=== PATIENT | male | born 1940 | race Caucasian/White ===

== ENCOUNTER 2018-07-17 16:53 | Inpatient (IN) | payer MEDICARE, OTHER ==
[~2018-07-17] VITALS: Ht 177.8 cm; Wt 100.9 kg
[~2018-07-17 16:53] MED LIST: ADULT LOW DOSE81 MG; ASPIRIN325 PO; COLACE100 MG PO; COLCHICINE0.6 MG PO; ELIQUIS2.5 MG PO; FLOMAX0.4 MG PO; GLUCOSAMINE &1 EACH; IRON; KLOR-CON 1010 MEQ PO; NORCO 5-325 TA1 EACH PO; OMEPRAZOLE40 MG PO; ONDANSETRON HCL4 M3 PO; OXYCODONE HCL 55 MG PO; PRILOSEC40 MG; PROSCAR 5MG TABL5 MG PO; SINGULAIR 10 MG10 M1 PO; TRAMADOL 50 MG50 MG PO; UNICOMPLEX M TA1 TA1 PO; VITAMIN D1000 UNI1; VITAMIN D2000 UNIT PO; VITAMIN E400 UNIT; VITAMINC500 PO; XARELTO10 MG PO; ZANTAC 150MG T150 MG PO; ZYRTEC10 M5 PO
[2018-07-17 16:55] VITALS: BP 124/59
[2018-07-17 17:19] LABS: ABSOLUTE BASOPHILS 0.1 thou/uL (0.0-0.2); ABSOLUTE EOSINOPHILS 0.2 thou/uL (0.0-0.7); ABSOLUTE LYMPHOCYTES 1.3 thou/uL (0.8-5.3); ABSOLUTE MONOCYTES 0.6 thou/uL (0.0-1.2); ABSOLUTE NEUTROPHILS 5.8 thou/uL (1.6-8.1); BASOPHILS 0.7 %; EOSINOPHILS 2.4 %; HEMATOCRIT 37.3 % (42.0-52.0); HEMOGLOBIN 12.4 gm/dL (14.0-18.0); LYMPHOCYTES 16.1 %; MCH 27.4 pg (26.0-34.0); MCHC 33.3 g/dL (28.0-37.0); MCV 82.3 fL (80.0-100.0); MONOCYTES 7.2 %; MPV 7.9 fl. (7.2-11.1); NUCLEATED RBCS 0 /100WBC; PLATELET COUNT* 229 thou/uL (150-400); POLYS 73.6 %; RBC 4.54 mil/uL (4.50-6.00); RDW-CV 14.4 % (10.5-14.5); WBC 7.9 thou/uL (4.0-11.0)
[2018-07-17 17:26] LABS: ANION GAP 8 mmol/L (7-16); BUN 49 mg/dL (7-18); CALCIUM 8.7 mg/dL (8.5-10.1); CHLORIDE 100 mmol/L (98-107); CO2 25 mmol/L (21-32); CREATININE 2.7 mg/dL (0.6-1.3); GLUCOSE 127 mg/dL (70-99); POTASSIUM 3.9 mmol/L (3.5-5.1); SODIUM 133 mmol/L (136-145)
[2018-07-17 17:31] LABS: ALBUMIN 2.9 g/dL (3.4-5.0); ALKALINE PHOSPHATASE 125 U/L (46-116); LIPASE 226 U/L (73-393); MAGNESIUM 1.9 mg/dL (1.8-2.4); NT-PRO BRAIN NAT PEPTIDE 966 pg/mL (<300); SGOT 31 U/L (15-37); SGPT 32 U/L (30-65); TOTAL BILIRUBIN 1.2 mg/dL (<0.1-1.0); TOTAL PROTEIN 7.1 g/dL (6.4-8.2); TROPONIN-I LEVEL <0.06 ng/mL (<0.06)
--- NOTE | 2018-07-17 17:33 | NUR ---
PT REPORTS THAT HE IS HAVING A "TWINGE" OF CHEST PAIN WHEN HE BREATHES IN DEEPLY. OTHERWISE, HIS CHIEF COMPLAINT AT THIS TIME IS SHORTNESS OF AIR.
[2018-07-17 17:49] LABS: INFLUENZA A ANTIGEN None Detected (None Detect); INFLUENZA B ANTIGEN None Detected (None Detect)
[2018-07-17 19:43] VITALS: BP 99/53
--- NOTE | 2018-07-17 19:44 | NUR ---
REPORT RECEIVED FROM LANA, WAITING FOR PATIENT'S ARRIVAL.
[2018-07-17 20:00] VITALS: BP 111/57
[2018-07-18] VITALS (7 sets, daily range): BP systolic 103–133; BP diastolic 55–76
[2018-07-18 00:58] LABS: HEMOGLOBIN 11.3 gm/dL (14.0-18.0); MCH 27.4 pg (26.0-34.0); MCHC 33.1 g/dL (28.0-37.0); MCV 82.6 fL (80.0-100.0); MPV 7.7 fl. (7.2-11.1); RBC 4.12 mil/uL (4.50-6.00); RDW-CV 13.9 % (10.5-14.5); WBC 6.2 thou/uL (4.0-11.0)
[2018-07-18 01:33] LABS: ALBUMIN 2.3 g/dL (3.4-5.0); CALCIUM 7.7 mg/dL (8.5-10.1); CREATININE 2.5 mg/dL (0.6-1.3); MAGNESIUM 1.7 mg/dL (1.8-2.4); POTASSIUM 4.1 mmol/L (3.5-5.1); TOTAL BILIRUBIN 1.5 mg/dL (<0.1-1.0)
[2018-07-18 03:49] LABS: URINE BILIRUBIN NEGATIVE (Negative); URINE BLOOD 2+ (Negative); URINE CLARITY CLEAR; URINE COLOR ORANGE; URINE GLUCOSE-RANDOM NEGATIVE (Negative); URINE KETONES TRACE (Negative); URINE LEUKOCYTES-REFLEX NEGATIVE (Negative); URINE NITRITE-REFLEX NEGATIVE (Negative); URINE PROTEIN NEGATIVE (Negative); URINE SPECIFIC GRAVITY 1.025 (1.005-1.030); URINE UROBILINOGEN 0.2 E.U./dl (0.2-1.0)
[2018-07-18 04:04] LABS: HYALINE CASTS 4-10 Moderate /LPF (None Seen); MUCUS 4-6 Moderate strn/LPF (None Seen); SQUAMOUS 4-10 Moderate /LPF (0-3)
[2018-07-18 04:05] LABS: BACTERIA-REFLEX 1-9 Few /HPF (None Seen); CRYSTALS None Seen /LPF (None Seen); URINE RBC 3-10 Few /HPF (0-2); URINE WBC-REFLEX 6-15 Few /HPF (0-5)
--- NOTE | 2018-07-18 05:48 | NUR ---
PATIENT RESTED IN BED, NO ACUTE CHANGES. PATIENT DID NOT SHOW SIGNS OF DISTRESS. PATIENT DID NOT COMPLAIN OF PAIN OR SOA. FALL PRECAUTIONS IN PLACE, CALL LIGHT WITH IN REACH, HOURLY ROUNDING OBSERVED, BED ALARM ON.
--- NOTE | 2018-07-18 08:00 | NUR ---
PT RESTING IN BED, SLEEP INTERUPTED, APPEARS O X 4, DENIES CHEST PAIN,.SOB, PAIN OR DISCOMFORT, WEARS CPAP AT HS , NPO FOR ABDOMINAL US
--- NOTE | 2018-07-18 12:00 | EKG ---
[place] [address] ELECTROCARDIOGRAM REPORT Name: KAYLEIGH ZAMBRANO Room: [address] ADM IN M.R.#: [id number] Admission: 07/17/18 Attend Phys: Jesus Frank, Discharge: Date of : 44 Report #: [id number] THIS REPORT FOR: //name// [facility] ED Test Date: 2018-07-17 Test Time: 17:01:15 Pat Name: KAYLEIGH ZAMBRANO Department: Room: [address] Gender: M Electronics Tester: JONAS : 1940 Requested By: Vargas aVughan Order Number: [id number] Reading MD: Speedy Kuo Measurements Intervals [place] Rate: 53 P: 56 [place]: 151 QRS: 71 QRSD: 105 T: 32 QT: 355 QTc: 334 Interpretive Statements Sinus rhythm Atrial premature complexes Minimal ST depression ST elevation, consider inferior injury Short QT interval Baseline wander in lead(s) V1 Compared to ECG 08/06/2017 09:08:36 Atrial premature complex(es) now present ST (T wave) deviation now present Myocardial infarct finding now present Short QT interval now present Electronically Signed On 07-18-2018 11:59:56 CDT by Speedy Kuo [email or web address] <ELECTRONICALLY SIGNED> By: Speedy Kuo MD, FACC 07/18/18 1159 00 170 Speedy Kuo MD, FACC /EPI
--- NOTE | 2018-07-18 12:00 | EKG ---
[place] [address] ELECTROCARDIOGRAM REPORT Name: KAYLEIGH ZAMBRANO Room: [address] ADM IN M.R.#: [id number] Admission: 07/17/18 Attend Phys: Jesus Frank, Discharge: Date of : 44 Report #: [id number] THIS REPORT FOR: //name// [facility] ED Test Date: 2018-07-17 Test Time: 17:53:52 Pat Name: KAYLEIGH ZAMBRANO Department: Room: [facility] Gender: M Him Tech: JONAS : 1940 Requested By: Vargas Vaughan Order Number: [id number] MD: Speedy Kuo Measurements Intervals [place] Rate: 53 P: 40 [place]: 169 QRS: 62 QRSD: 106 T: 30 QT: 372 QTc: 350 Interpretive Statements Sinus rhythm Atrial premature complexes in couplets Low voltage, precordial leads Minimal ST depression ST elevation, consider inferior injury Compared to ECG 08/06/2017 09:08:36 Atrial premature complex(es) now present Low QRS voltage now present ST (T wave) deviation now present Myocardial infarct finding now present Electronically Signed On 07-18-2018 11:59:58 CDT by Speedy Kuo [email or web address] <ELECTRONICALLY SIGNED> By: Speedy Kuo MD, FACC 07/18/18 1159 175 175 Speedy Kuo MD, FACC /EPI
--- NOTE | 2018-07-18 12:00 | EKG ---
[place] [address] ELECTROCARDIOGRAM REPORT Name: KAYLEIGH ZAMBRANO Room: [address] ADM IN M.R.#: [id number] Admission: 07/17/18 Attend Phys: Jesus Frank, Discharge: Date of : 44 Report #: [id number] THIS REPORT FOR: //name// [facility] ED Test Date: 2018-07-17 Test Time: 16:57:34 Pat Name: KAYLEIGH ZAMBRANO Department: Room: [facility] Gender: M Resolution Specialist: JONAS : 1940 Requested By: Vargas Vaughan Order Number: [id number] MD: Speedy Kuo Measurements Intervals [place] Rate: 93 P: 45 [place]: 169 QRS: 70 QRSD: 105 T: 38 QT: 345 QTc: 430 Interpretive Statements Sinus rhythm Atrial premature complexes Probable left atrial enlargement Inferior infarct, acute (LCx) Lateral leads are also involved Compared to ECG 08/06/2017 09:08:36 Atrial premature complex(es) now present Myocardial infarct finding now present Electronically Signed On 07-18-2018 11:59:52 CDT by Speedy Kuo [email or web address] <ELECTRONICALLY SIGNED> By: Speedy Kuo MD, FACC 07/18/18 1159 1657 1657 Speedy Kuo MD, FACC /EPI
--- NOTE | 2018-07-18 12:02 | EKG ---
[place] [address] ELECTROCARDIOGRAM REPORT Name: KAYLEIGH ZAMBRANO Room: [address] ADM IN M.R.#: [id number] Admission: 07/17/18 Attend Phys: Jesus Frank, Discharge: Date of : 44 Report #: [id number] THIS REPORT FOR: //name// [facility] Test Date: 2018-07-18 Test Time: 10:15:30 Pat Name: KAYLEIGH ZAMBRANO Department: Room: [address] Gender: M Orthopedic Technician: : 1940 Requested By: Speedy Kuo Order Number: [id number] Reading MD: Speedy Kuo Measurements Intervals [place] Rate: 73 P: [place]: QRS: 58 QRSD: 105 T: 5 QT: 357 QTc: 394 Interpretive Statements AFIB Low voltage, precordial leads Minimal ST depression Compared to ECG 08/06/2017 09:08:36 Low QRS voltage now present ST (T wave) deviation now present Sinus rhythm no longer present Electronically Signed On 07-18-2018 12:02:19 CDT by Speedy Kuo [email or web address] <ELECTRONICALLY SIGNED> By: Speedy Kuo MD, FACC 07/18/18 1202 1015 1015 Speedy Kuo MD, FAC /EPI
--- NOTE | 2018-07-18 18:39 | NUR ---
pt resting in bed, denies chest pain, denies SOB at rest. appears dyspneic with minimal activity, was in a0fin earlier in day, now in NSR , plan on JAKE in am, npo at midnight
--- NOTE | 2018-07-18 18:48 | NUR ---
pt voided, unmeasured amt this am. states maybe 300-400 ml , unsure, has not voided since aprx 1000 this am, bladder scanned, shows 170 ml, pt states not feel urge to void. states straights vaths at home often, because can not always empty bladder completly, but states can feel urge
[2018-07-19 04:19] VITALS: BP 140/74
[2018-07-19 04:49] LABS: ABSOLUTE EOSINOPHILS 0.3 thou/uL (0.0-0.7); ABSOLUTE LYMPHOCYTES 1.3 thou/uL (0.8-5.3); ABSOLUTE MONOCYTES 0.7 thou/uL (0.0-1.2); ABSOLUTE NEUTROPHILS 3.7 thou/uL (1.6-8.1); BASOPHILS 0.8 %; EOSINOPHILS 4.8 %; HEMATOCRIT 33.1 % (42.0-52.0); HEMOGLOBIN 10.9 gm/dL (14.0-18.0); LYMPHOCYTES 21.3 %; MCH 27.6 pg (26.0-34.0); MCHC 33.1 g/dL (28.0-37.0); MCV 83.5 fL (80.0-100.0); MONOCYTES 11.8 %; MPV 8.4 fl. (7.2-11.1); NUCLEATED RBCS 0 /100WBC; PLATELET COUNT* 191 thou/uL (150-400); POLYS 61.3 %; RBC 3.96 mil/uL (4.50-6.00); RDW-CV 13.7 % (10.5-14.5)
--- NOTE | 2018-07-19 05:00 | NUR ---
PATIENT RESTED IN BED, NO ACUTE CHANGES. PATIENT DID NOT SHOW SIGNS OF DISTRESS. PATIENT IS NPO. FALL PRECAUTIONS IN PLACE, CALL LIGHT WITH IN REACH, HOURLY ROUNDING OBSERVED, BED ALARM ON.
[2018-07-19 05:04] LABS: CALCIUM 8.4 mg/dL (8.5-10.1); CREATININE 2.2 mg/dL (0.6-1.3); POTASSIUM 4.4 mmol/L (3.5-5.1)
--- NOTE | 2018-07-19 07:20 | NUR ---
CHANGE OF SHIFT, BEDSIDE REPORT GIVEN PATIENT SEEN AT BEDSIDE, IN BED ASLEEP ASSUMED APTIENT CARE
[2018-07-19 08:00] VITALS: BP 146/68
--- NOTE | 2018-07-19 09:11 | CON ---
[address] [address] CONSULTATION Name: KAYLEIGH ZAMBRANO Room: [address] IN M.R.#: [id number] Admission: 07/17/18 Attend Phys: Jesus Frank, Discharge: Date of : 44 Report #: [id number] THIS REPORT FOR: //name// CC: Jesus Phillip Shadiarmando DATE OF SERVICE: 07/18/2018 REASON FOR CONSULTATION: Chest pain, pericardial effusion. HISTORY OF PRESENT ILLNESS: The patient is a 77-year-old man who was admitted on 07/13/2018 for observation while visiting [place]. He had a sudden onset of a centrally located nonradiating chest pain. It was not associated with palpitations, heart racing or skipping. It was associated with dyspnea with exertion. He went to the emergency room there and apparently from there a nuclear stress test which was performed at that institution, which was a pharmacologic stress test indicated he had normal perfusion and he did not get to see a thermostatic controls supervisor as the stress test was normal. However, a CTA of the chest was also performed, I reviewed these records myself. It was negative for PE or dissection, but it was noted he had a small at least moderate pericardial effusion measuring approximately 1.4 cm circumferential. There was no significant pleural involvement. Since, he was discharged there, he did not feel well, so he just drove home with his where he lives here in [place]. He presented to the Emergency Department with similar symptoms. He is without fevers or chills. His ECG demonstrated atrial fibrillation and he was noted to be in sinus rhythm on the stress test report, but he did say that the ER doctor told him he had an irregular heartbeat. Again, the physician records are not available. We did get a copy of his test results, though. PAST MEDICAL HISTORY: He has no history of immunosuppression illnesses. He has no history of heart disease. He is not a diabetic and does not have kidney failure. He has no history of peripheral vascular disease. SOCIAL HISTORY: He is a nonsmoker. He is , rarely drinks. PAST SURGICAL HISTORY: No recent surgeries. FAMILY HISTORY: Strong for heart disease. Father at age 59 of a heart attack. Brother has a pacemaker. Sister has stents. ALLERGIES: HE HAS ALLERGIES TO PENICILLIN. REVIEW OF SYSTEMS: CENTRAL NERVOUS SYSTEM: No headache, blurry [place] [address] CONSULTATION Name: KAYLEIGH ZAMBRANO AMRIT Room: [address]#: [id number] Admission: 07/17/18 Attend Phys: Jesus Frank, Discharge: Date of : 44 Report #: [id number] GENERAL: No weight loss. Positive ED. RESPIRATORY: Positive cough, but no sputum production. CARDIOVASCULAR: Positive palpitations, positive dyspnea with exertion, chest pain has subsided. NEUROLOGIC: Denies headaches or blurry vision. GASTROINTESTINAL: No nausea, vomiting, hematemesis or melena. GENITOURINARY: No dysuria or hematuria. HEMATOLOGIC: No anemia or bleeding disorders. RENAL: No history of kidney failure. PSYCHIATRIC: No depression or anxiety. SKIN: No rash. MUSCULOSKELETAL: Positive arthritis. He takes no medicines chronically. PHYSICAL EXAMINATION: VITAL SIGNS: Blood pressure is 129/58, pulse is 88 in atrial fibrillation on telemetry, temperature 36.6, respiratory rate 18. GENERAL: A pleasant adult male who is alert, oriented, no apparent distress. NECK: Supple. No jugular venous distention. CARDIOVASCULAR: Regular. I cannot hear a murmur. LUNGS: Clear to auscultation. ABDOMEN: Soft, nontender. EXTREMITIES: No peripheral edema. SKIN: Warm and dry. NEUROLOGIC: There are no focal deficits. Chest x-ray shows no acute cardiopulmonary abnormality. Renal ultrasound demonstrated negative study for kidney stones. LABORATORY DATA: Sodium was 139, potassium is 4.1, chloride is 106, CO2 is 24, BUN is 53, creatinine is 2.5. GFR is 25, AST is 25, ALT is 27. Troponin I is 0.06. BNP was 966. EKG demonstrates atrial fibrillation today. There is a Q-wave in lead 3 only. There are no other ST segment abnormalities. He has somewhat poor R-wave progression. There is no ST elevation or NH depression. IMPRESSION: 1. Chest pain. He had a pharmacologic stress test, which was negative for ischemia. I suspect he has some form of a myocarditis. He does have a known pericardial effusion, which was noted on CT imaging. I would treat him with anti-inflammatories for this. 2. Pericardial effusion. We will reassess his effusion to make sure it is not elevated, with an echocardiogram tomorrow at the time of his transesophageal echo for cardioversion. 3. Atrial fibrillation. This is new onset. Apparently, he was in sinus rhythm based on the stress test result I reviewed; however, the ER doctor told him he [address] [address] CONSULTATION Name: KAYLEIGH ZAMBRANO Room: [address] IN .R.#: [id number] Admission: 07/17/18 Attend Phys: Jesus BrianSue Zac, Discharge: Date of : 44 Report #: [id number] was having an irregular rhythm. I am not sure if it was missed in [place] or not. However, based on the patient's age and symptomatology, I think he would feel better in a sinus rhythm, so we will plan for a JAKE-guided cardioversion. I will place him on Lovenox. I did not place him on novel agent just yet because if his pericardial effusion is larger and needs a tap, we will need to be able to hold his anticoagulation. 4. Renal failure. We will continue with IV fluids. <ELECTRONICALLY SIGNED> By: Ariel Beavers MD, FACC 07/19/18 0911 1040 [id number] Kuo MD, FACC /nt
--- NOTE | 2018-07-19 11:04 | NUR ---
Pt is A&O. Resides at home with his . Normally active and independent, just returned back from a trip to [place]. No DME. No hx of HH or SNF. Strong support sx. Cardiology and Renal following.
[2018-07-19 12:00] VITALS: BP 132/68
--- NOTE | 2018-07-19 15:11 | 2DMMODE ---
[place] [address] 2 D/M-MODE ECHOCARDIOGRAM Name: KAYLEIGH ZAMBRANO AMRIT Room: [address] IN [facility]#: [id number] Admission: 07/17/18 Attend Phys: Jesus Partida Discharge: Date of : 44 Date of Service: 07/19/18 1511 Report #: [id number] THIS REPORT FOR: //name// APPROVED REPORT Study performed: 07/19/2018 11:44:31 EXAM: Comprehensive 2D, Doppler, and color-flow Echocardiogram Patient Location: In-Patient Room #: 208 Status: routine BSA: 2.17 HR: 80 bpm BP: 146/68 mmHg Rhythm: NSR Other Information Study Quality: Good Indications Atrial Fibrillation Dyspnea Chest Pain 2D Dimensions IVSd: 8.96 (7-11mm) LVOT Diam: 19.42 (18-24mm) LVDd: 44.92 mm PWd: 10.37 (7-11mm) Ascending Ao: 31.72 (22-36mm) LVDs: 26.78 (25-40mm) Aortic Root: 34.71 mm Volumes Left Atrial Volume (Systole) LA ESV Index: 26.90 mL/m2 Aortic Valve AoV Peak Telly.: 1.27 m/s AO Peak Gr.: 6.46 mmHg LVOT Max P.52 mmHg AO Mean Gr.: 4.03 mmHg LVOT Mean P.59 mmHg LVOT Max V: 0.94 m/s AO V2 VTI: 27.55 cm LVOT Mean V: 0.57 m/s FAUSTINO (VTI): 2.41 cm2 LVOT V1 VTI: 22.38 cm Mitral Valve E/A Ratio: 2.09 [place] [address] 2 D/M-MODE ECHOCARDIOGRAM Name: KAYLEIGH ZAMBRANO Room: [address] IN M.R.#: [id number] Admission: 07/17/18 Attend Phys: Jesus Partida Discharge: Date of : 44 Date of Service: 07/19/18 1511 Report #: [id number] MV Decel. Time: 180.26 ms MV E Max Telly.: 1.18 m/s MV PHT: 52.28 ms MVA (PHT): 4.21 cm2 TDI E/Lateral E': 14.75 E/Medial E': 10.73 Medial E' Telly.: 0.11 m/s Lateral E' Telly.: 0.08 m/s Pulmonary Valve PV Peak Telly.: 0.97 m/s PV Peak Gr.: 3.76 mmHg Tricuspid Valve RAP Estimate: 5.00 mmHg TR Peak Gr.: 37.95 mmHg RVSP: 43.00 mmHg PA Pressure: 43.00 mmHg Left Ventricle The left ventricle is normal size. There is normal LV segmental wall motion. There is normal left ventricular wall thickness. Left ventricular systolic function is normal. The left ventricular ejection fraction is within the normal range. LVEF is 60%. The left ventricular diastolic function is normal. Right Ventricle The right ventricle is normal size. The right ventricular systolic function is normal. Atria The left atrium size is normal. The right atrium size is normal. Aortic Valve The aortic valve is normal in structure. No aortic regurgitation is present. There is no aortic valvular stenosis. Mitral Valve Mitral valve leaflets are mildly thickened. Mild mitral regurgitation. No evidence of mitral valve stenosis. Tricuspid Valve The tricuspid valve is normal in structure. Mild tricuspid regurgitation. Mild pulmonary hypertension[place] [address] 2 D/M-MODE ECHOCARDIOGRAM Name: KAYLEIGH ZAMBRANO Room: [address] IN [facility]#: [id number] Admission: 07/17/18 Attend Phys: Jesus Partida Discharge: Date of : 44 Date of Service: 07/19/18 1511 Report #: [id number] The pulmonary valve is normal in structure. Mild pulmonic regurgitation. Great Vessels The aortic root is normal in size. IVC is normal in size and collapses >50% with inspiration. Pericardium Mild circumferential pericardial effusion. <Conclusion> The left ventricle is normal size. There is normal left ventricular wall thickness. Left ventricular systolic function is normal. The left ventricular ejection fraction is within the normal range. LVEF is 60%. The left ventricular diastolic function is normal. The right ventricle is normal size. The left atrium size is normal. The aortic valve is normal in structure. Mitral valve leaflets are mildly thickened. Mild mitral regurgitation. No evidence of mitral valve stenosis. The tricuspid valve is normal in structure. Mild tricuspid regurgitation. Mild pulmonary hypertension. IVC is normal in size and collapses >50% with inspiration. Mild circumferential pericardial effusion. There is normal LV segmental wall motion. <ELECTRONICALLY SIGNED> By: Felipe Garsia MD, FACC 07/19/181510 10 10 Felipe Garsia MD, FACC /INF
[2018-07-19 16:00] VITALS: BP 131/78
--- NOTE | 2018-07-19 17:54 | EKG ---
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: : 1940 Requested By: Debbie Yanez Order Number: [id number] Reading MD: Ariel Beavers Measurements Intervals [place] Rate: 64 P: 34 [place]: 174 QRS: 76 QRSD: 107 T: 21 QT: 400 QTc: 413 Interpretive Statements Sinus rhythm Low voltage, precordial leads Compared to ECG 07/18/2018 10:15:30 Atrial fibrillation no longer present ST (T wave) deviation no longer present Electronically Signed On 07-19-2018 17:54:10 CDT by Ariel Beavers [email or web address] <ELECTRONICALLY SIGNED> By: Ariel Beavers MD, FACC 07/19/18 1754 1106 1106 Ariel Beavers MD, FACC /EPI
--- NOTE | 2018-07-19 17:55 | EKG ---
[place] [address] ELECTROCARDIOGRAM REPORT Name: KAYLEIGH ZAMBRANO Room: [address] ADM IN M.R.#: [id number] Admission: 07/17/18 Attend Phys: Jesus Frank, Discharge: Date of : 44 Report #: [id number] THIS REPORT FOR: //name// [facility] Test Date: 2018-07-19 Test Time: 14:13:10 Pat Name: KAYLEIGH ZAMBRANO Department: Room: 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: [facility] : 1940 Requested By: Ariel Beavers Order Number: [id number] Reading MD: Ariel Beavers Measurements Intervals [place] Rate: 82 P: [place]: QRS: 76 QRSD: 111 T: 0 QT: 375 QTc: 438 Interpretive Statements Atrial fibrillation Low voltage, precordial leads Borderline repolarization abnormality Compared to ECG 07/18/2018 10:15:30 ST (T wave) deviation no longer present Electronically Signed On 07-19-2018 17:55:38 CDT by Ariel Beavers [email or web address] <ELECTRONICALLY SIGNED> By: Ariel Beavers MD, FACC 07/19/18 1755 1413 1413 Ariel Beavers MD, [facility] /EPI
[2018-07-19 20:00] VITALS: BP 149/85
[2018-07-20] VITALS: BP 147/79
--- NOTE | 2018-07-20 03:28 | NUR ---
PATIENT RESTED IN BED, NO ACUTE CHANGES. PATIENT DID NOT SHOW SIGNS OF DISTRESS. FALL PRECAUTIONS IN PLACE, CALL LIGHT WITH IN REACH, HOURLY ROUNDING OBSERVED, BED ALARM ON.
[2018-07-20 03:54] LABS: HEMATOCRIT 33.9 % (42.0-52.0); HEMOGLOBIN 11.2 gm/dL (14.0-18.0); MCH 27.4 pg (26.0-34.0); MCHC 33.1 g/dL (28.0-37.0); MCV 82.9 fL (80.0-100.0); MPV 7.5 fl. (7.2-11.1); RBC 4.09 mil/uL (4.50-6.00); RDW-CV 14.2 % (10.5-14.5); WBC 6.8 thou/uL (4.0-11.0)
[2018-07-20 04:00] VITALS: BP 159/97
[2018-07-20 04:11] LABS: ALBUMIN 2.1 g/dL (3.4-5.0); CALCIUM 8.6 mg/dL (8.5-10.1); CREATININE 1.7 mg/dL (0.6-1.3); MAGNESIUM 1.9 mg/dL (1.8-2.4); POTASSIUM 4.6 mmol/L (3.5-5.1); TOTAL BILIRUBIN 0.7 mg/dL (<0.1-1.0); TOTAL PROTEIN 5.9 g/dL (6.4-8.2)
[2018-07-20 08:00] VITALS: BP 163/98
[2018-07-20 11:22] VITALS: BP 156/91
[2018-07-20 15:32] VITALS: BP 147/90
[2018-07-20 20:00] VITALS: BP 157/96
[2018-07-21] VITALS: BP 153/93; BP 168/94
[2018-07-21 04:14] VITALS: BP 153/93
[2018-07-21 05:15] LABS: ALBUMIN 2.3 g/dL (3.4-5.0); CREATININE 1.5 mg/dL (0.6-1.3); POTASSIUM 4.5 mmol/L (3.5-5.1); TOTAL BILIRUBIN 0.7 mg/dL (<0.1-1.0); TOTAL PROTEIN 6.2 g/dL (6.4-8.2)
--- NOTE | 2018-07-21 06:01 | NUR ---
PATIENT RESTED IN BED, NO ACUTE CHANGES. PATIENT DID NOT SHOW SIGNS OF DISTRESS. DOCTOR NOITIFED OF PATIENT'S REQUEST FOR SELF CATHETERIZATION, SEE ORDERS. FALL PRECAUTIONS IN PLACE, CALL LIGHT WITH IN REACH, HOURLY ROUNDING OBSERVED.
[2018-07-21 08:00] VITALS: BP 163/94
[2018-07-21 12:00] VITALS: BP 136/83
[2018-07-21 13:35] LABS: INR 1.2; PROTIME 12.2 Seconds (9.20-11.50)
[2018-07-21 16:00] VITALS: BP 136/43
--- NOTE | 2018-07-21 17:00 | NUR ---
I have reviewed the reassessment and documentation by the student nurse Alexandra Jack and agree.
--- NOTE | 2018-07-21 17:00 | NUR ---
RECEIVED REPORT. ASSUMED CARE OF PT AROUND 729. PT A&O X4, VSS, O2 SAT >90% ON 2L PER NC. FISHER TRAP IN PLACE TRACING SR TO SR WITH FIRST DEGREE AV BLOCK. AM ASSESSMENT AND VITALS COMPLETED CHARTED. IV INTACT. MEDS PER EMAR. PT COMPLETED ABBREVIATED ECHO AND THORACENTESIS THIS SHIFT. PT REPORTED HEADACHE THIS AM THAT WAS MANAGED WITH PO PAIN MEDICATION WITH RELIEF. PT UP WITH SBA TO BATHROOM TO VOID THIS SHIFT. PT HAS HAD SEVERAL BOWEL MOVEMENTS THIS SHIFT WELL. AT BEDSIDE. PT TOLERATING DIET - APPETITE POOR, BUT PT REPORTS THAT HIS APPETITE IS "IMPROVING". PT CURRENTLY SITTING UP IN BED EATING DINNER. CALL LIGHT IS WITHIN REACH. HOURLY ROUNDING PERFORMED. FALL PRECAUTIONS IN PLACE. WCTM FOR DURATION OF SHIFT.
--- NOTE | 2018-07-21 17:20 | 2DMMODE ---
[facility] [address] [place] [address] 2 D/M-MODE ECHOCARDIOGRAM Name: KAYLEIGH ZAMBRANO AMRIT Room: [address] IN [facility]#: [id number] Admission: 07/17/18 Attend Phys: Jesus Partida Discharge: Date of : 44 Date of Service: 07/21/18 1720 Report #: [id number] THIS REPORT FOR: //name// APPROVED REPORT Study performed: 07/21/2018 14:25:42 EXAM: Limited 2D Echocardiogram Patient Location: In-Patient Room #: 203 Status: routine BSA: 2.25 HR: 73 bpm BP: 136/83 mmHg Rhythm: NSR Other Information Study Quality: Good Indications Pericardial Effusion Left Ventricle The left ventricle is normal size. There is normal left ventricular wall thickness. The left ventricular systolic function is normal. LVEF is 60-65%. Right Ventricle The right ventricle is normal size. The right ventricular systolic function is normal. Atria The left atrium size is normal. The right atrium size is normal. Aortic Valve The aortic valve is normal in structure. Mitral Valve The mitral valve is mildly thickened. Tricuspid Valve The tricuspid valve is normal in structure. Great Vessels The aortic root is normal in size. The ascending aorta is normal in [place] [address] 2 D/M-MODE ECHOCARDIOGRAM Name: KAYLEIGH ZAMBRANO Room: [address] IN M.R.#: [id number] Admission: 07/17/18 Attend Phys: Jesus Partida Discharge: Date of : 44 Date of Service: 07/21/181719 Report #: [id number] size. IVC is normal in size and collapses >50% with inspiration. Pericardium Mild circumferential pericardial effusion. There is no evidence of hemodynamic compromise. <Conclusion> The left ventricle is normal size. There is normal left ventricular wall thickness. The left ventricular systolic function is normal. LVEF is 60-65%. Mild circumferential pericardial effusion. There is no evidence of hemodynamic compromise. <ELECTRONICALLY SIGNED> By: Ariel Beavers MD, FACC 07/21/181719 19 19 Ariel Beavers MD, FACC /INF
[2018-07-21 20:44] VITALS: BP 155/84
[2018-07-22] VITALS: BP 127/61
[2018-07-22 04:00] VITALS: BP 160/95
--- NOTE | 2018-07-22 05:16 | NUR ---
PT IS ABLE TO COMMUNICATE HIS NEEDS TO STAFF EFFECTIVELY. CURRENT PAIN MEDICATION REGIMEN HAS BEEN ADEQUATE FOR CONTROLLING HIS PAIN UP TO THIS TIME. POSSIBLE DISCHARGE TODAY.
[2018-07-22 08:00] VITALS: BP 160/92
[2018-07-22 08:09] LABS: CALCIUM 8.5 mg/dL (8.5-10.1); CREATININE 1.3 mg/dL (0.6-1.3); HEMATOCRIT 34.7 % (42.0-52.0); HEMOGLOBIN 11.3 gm/dL (14.0-18.0); MCH 27.4 pg (26.0-34.0); MCHC 32.6 g/dL (28.0-37.0); MCV 83.8 fL (80.0-100.0); MPV 8.4 fl. (7.2-11.1); POTASSIUM 4.5 mmol/L (3.5-5.1); RBC 4.14 mil/uL (4.50-6.00); WBC 7.5 thou/uL (4.0-11.0)
--- NOTE | 2018-07-22 10:33 | CON ---
[address] [address] CONSULTATION Name: KAYLEIGH ZAMBRANO Room: [address] IN M.R.#: [id number] Admission: 07/17/18 Attend Phys: Jesus Frank, Discharge: Date of : 44 Report #: [id number] THIS REPORT FOR: //name// CC: Jesus Shepard DATE OF SERVICE: 07/20/2018 REQUESTING PHYSICIAN: Dr. Yanez. REASON FOR CONSULTATION: Acute kidney injury. HISTORY OF PRESENT ILLNESS: The patient is a very pleasant 77-year-old white male with medical history significant for GERD, presents to the hospital with chest pain and fever. The patient apparently was in [place] and was not feeling well there, had some shortness of breath and chest pain. Head CT angiogram done there, they ruled out pulmonary embolism. His creatinine at that time was 1.2 and then when he presented here his creatinine went up to 2.7 and he was also diagnosed with pericarditis and left lower lobe pneumonia. Also developed atrial fibrillation. He was started on flecainide. He is back in normal sinus rhythm. His creatinine was improving, creatinine came down to 1.7 today. He is on cefepime for possible pneumonia and he was started on ibuprofen 800 mg 3 times a day and colchicine 0.6 mg twice a day for his pericarditis. 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 He does not smoke or drink. FAMILY HISTORY: Positive for heart disease. Father at age of 59 from heart attack. Brother has pacemaker. Sister has coronary artery disease. REVIEW OF SYSTEMS: Positive for some shortness of breath, chest pain, and discomfort. He does have pollakiuria and nocturia. No hematuria. No blood in his stool. He is not depressed. No changes in visual or hearing acuity. PHYSICAL EXAMINATION: GENERAL: The patient is awake, alert, and oriented. VITAL SIGNS: Blood pressure is 147/90, heart rate is 73, afebrile. HEENT: Pupils are round. NECK: Fatty. LUNGS: Decreased air movement, especially in the left base. CARDIOVASCULAR: Regular rate. ABDOMEN: Obese, soft. EXTREMITIES: Lower extremities, no edema. LABORATORY DATA: Hemoglobin is 11.2, white count is 6.8 thousand, there is no left shift. His serum sodium is 139, potassium is 4.6, chloride is 111, [place] [address] CONSULTATION Name: KAYLEIGH ZAMBRANO Room: [address]#: [id number] Admission: 07/17/18 Attend Phys: Jesus Frank, Discharge: Date of : 42 Report #: [id number] dioxide is 18, BUN is 55, and creatinine is 1.5. Urinalysis, trace ketones and 2+ blood. DIAGNOSTIC DATA: Renal ultrasound was unremarkable. ASSESSMENT: A 77-year-old gentleman with: 1. Acute kidney injury likely due to combination of pneumonia and use of contrast for CT angiogram, which was done a week ago in [place]. Renal function are improving. 2. Pericarditis, started on colchicine and ibuprofen today. 3. Overweight. 4. Paroxysmal atrial fibrillation. PLAN: Discussed this case with Dr. Beavers, tool carrier, and we are going to continue with ibuprofen and colchicine for now. We will watch his kidney function. If his creatinine worsens, we will stop that and use steroids. I am not sure if we need to continue cefepime. I would obtain a chest x-ray, PA and lateral views. Consider consulting repair service clerk. Thank you very much for asking my opinion on acute kidney injury of this patient. <ELECTRONICALLY SIGNED> By: Bradley Alexander MD 07/22/18 1033 1557 [id number] Alexander MD /[facility]
--- NOTE | 2018-07-22 11:02 | NUR ---
ASSUMED CARE OF PT AT 0730. PT RESTING IN BED WAITING FOR BREAKFAST. AT BEDSIDE. PT A&0X4, DENIES ANY PAIN OR SHORTNESS OF BREATH AT THIS TIME. PT STATES HE IS NERVOUS REGARDING DISCHARGING HOME SOON. PT TRACING SR ON THE RAILROAD DESIGN CONSULTANT. ON HOME CPAP SAT 96%. ON RA WHEN AWAKE. PT HAS URINARY RETENTION AND STRAIGHT CATHS SELF NEEDED WITH HOME SUPPLIES. PT UP AD PEDRO IN ROOM. PT GOAL FOR TODAY IS TO MONITOR LABS, PAIN MGMT AND HAVE CARDIOLOGY EVAL/RECOMMEND ANTICOAG REGIMEN FOR PAROXYSMAL AFIB. AM ASSESSMENT CHARTED. MEDICATIONS PER MAR. PT REPOSITIONS SELF WITH REMINDERS. HOURLY ROUNDING OBSERVED. BED IN LOW POSITION. CALL LIGHT WITHIN REACH. WILL CONTINUE PLAN OF CARE.
[2018-07-22 11:36] VITALS: BP 145/87
[2018-07-22 15:37] VITALS: BP 147/82
--- NOTE | 2018-07-22 17:44 | NUR ---
NO ACUTE CHANGES THROUGHOUT SHIFT. REFER TO CHARTING. PT DENIES ANY PAIN OR SHORTNESS OF BREATH THROUGHOUT AFTERNOON. PT RESTED WELL THIS AFTERNOON. AT BEDSIDE AND UPDATED ON CURRENT PLAN OF CARE. PT RECEIVING IV ABX FOR PNEUMONIA. NO PLANS FOR ANTI COAG AT THIS TIME. PT PROGRESSING TOWARDS GOALS. POSSIBLE DISCHARGE HOME TOMORROW 07/23. CONTINUES TO TRACE SR ON THE BREAKER OPERATOR. ON RA SAT UPPER 90'S. PT UP AD PEDRO. MEDICATIONS PER NOV. PT REPOSITIONS SELF. HOURLY ROUNDING OBSERVED. BED IN LOW POSITION. CALL LIGHT WITHIN REACH. WILL CONTINUE PLAN OF CARE.
[2018-07-22 20:00] VITALS: BP 164/93
[2018-07-23 00:27] VITALS: BP 166/85
--- NOTE | 2018-07-23 00:52 | NUR ---
PT ALERT ORIENTED. UP TO BR AD PEDRO. TELEMETRY SHOWS SR. REFUSING SCHEDULED TRAMADOL. RESTING QUIETLY.
[2018-07-23 04:16] VITALS: BP 153/88
[2018-07-23 05:24] LABS: HEMATOCRIT 34.3 % (42.0-52.0); HEMOGLOBIN 11.4 gm/dL (14.0-18.0); MCH 27.5 pg (26.0-34.0); MCHC 33.3 g/dL (28.0-37.0); MCV 82.7 fL (80.0-100.0); MPV 7.2 fl. (7.2-11.1); RBC 4.15 mil/uL (4.50-6.00); RDW-CV 14.3 % (10.5-14.5); WBC 7.4 thou/uL (4.0-11.0)
[2018-07-23 05:30] LABS: CALCIUM 8.7 mg/dL (8.5-10.1); CREATININE 1.1 mg/dL (0.6-1.3); MAGNESIUM 1.7 mg/dL (1.8-2.4); POTASSIUM 4.3 mmol/L (3.5-5.1)
[2018-07-23 08:00] VITALS: BP 145/77
--- NOTE | 2018-07-23 10:03 | NUR ---
ASSUMED CARE OF PT AT 0730. PT RESTING IN RECLINER WAITING FOR BREAKFAST. AT BEDSIDE. PT A&0X4, DENIES ANY PAIN AT THIS TIME. PT STATES HE FEELS MORE SHORT OF BREATH TODAY AND HIS COUGH IS WORSE TODAY. PT HAS NON PRODUCTIVE COUGH. PT STATES HE DOES NOT FEEL COMFORTABLE GOING HOME TODAY. DR GALINDO HERE TO SEE PT. ORDERS RECEIVED FOR PT, OT EVAL AND TREAT, BNP AND CXR. PT TRACING SR ON THE UNDERGROUND SUPERVISOR. PT UP AD PEDRO IN ROOM. PT GOAL FOR TODAY IS SEE RESULTS OF CXR, BNP AND FOR PT TO WORK WITH PT AND OT. AM ASSESSMENT CHARTED. MEDICATIONS PER NOV. PT REPOSITIONS SELF. HOURLY ROUNDING OBSERVED. BED IN LOW POSITION. CALL LIGHT WITHIN REACH. WILL CONTINUE PLAN OF CARE.
[2018-07-23 12:00] VITALS: BP 141/70
--- NOTE | 2018-07-23 13:42 | NUR ---
Nutrition: Pt assessed for LOS. Per notes, pt does not feel comforable going home today d/t SOB. Wt stable, 222#. H/o GERD, ARF. Heart Healthy diet. Albumin 2.3, prealb 12.2. Pleaural effusion. No nutrition interventions are needed at this time. Will follow up per protocol.
[2018-07-23 16:00] VITALS: BP 130/70; BP 154/85
--- NOTE | 2018-07-23 17:24 | NUR ---
NO ACUTE CHANGES THROUGHOUT SHIFT. REFER TO CHARTING. PT HAD BNP TODAY- RESULTS ELEVATED- ORDERS RECEIVED FOR IV LASIX X1. CXR COMPLETED-REFER TO RESULTS. PT WORKED WITH PHYSICAL AND OCCUPATIONAL THERAPY-TOLERATED WELL. PT STATES SHORTNESS OF BREATH HAS GOTTEN BETTER DAY WENT ON. PROBABLE DISCHARGE HOME TOMORROW. PT DENIES ANY PAIN THROUGHOUT AFTERNOON. MEDICATIONS PER MAR. REMAINED AT BEDSIDE THROUGHOUT SHIFT AND UPDATED ON CURRENT PLAN OF CARE. PT REPOSITIONS SELF. HOURLY ROUNDING OBSERVED. BED IN LOW POSITION. CALL LIGHT WTHIN REACH. WILL CONTINUE PLAN OF CARE.
[2018-07-23 20:00] VITALS: BP 158/84
[2018-07-24] VITALS: BP 145/91
[2018-07-24 04:00] VITALS: BP 166/98
[2018-07-24 04:54] LABS: HEMOGLOBIN 11.5 gm/dL (14.0-18.0); MCH 27.1 pg (26.0-34.0); MCHC 32.9 g/dL (28.0-37.0); MCV 82.5 fL (80.0-100.0); MPV 7.7 fl. (7.2-11.1); RBC 4.24 mil/uL (4.50-6.00); RDW-CV 14.2 % (10.5-14.5); WBC 8.5 thou/uL (4.0-11.0)
[2018-07-24 04:59] LABS: CALCIUM 8.8 mg/dL (8.5-10.1); CREATININE 1.4 mg/dL (0.6-1.3); MAGNESIUM 1.5 mg/dL (1.8-2.4); POTASSIUM 4.5 mmol/L (3.5-5.1)
--- NOTE | 2018-07-24 07:12 | NUR ---
PATIENT PROGRESSING TOWARDS GOALS: PATIENT DENIES PAIN AND DISCOMFORT THROUGHOUT SHIFT. PATIENT UP AD PEDRO WITHOUT DIFFICULTY. PATIENT STATES HE "FEELS MUCH BETTER." PATIENT ANTICIPATING DISCHARGE TODAY. HOURLY ROUNDING OBSERVED. CALL LIGHT WITHIN REACH.
[2018-07-24 08:12] VITALS: BP 135/90
[2018-07-24] MEDS ORDERED: IBUPROFEN 400400 M2 PO (08:22)
[2018-07-24] MEDS ORDERED: LEVAQUIN 750 M750 MG PO (08:22)
[2018-07-24] MEDS ORDERED: COLCHICINE0.6 MG PO (08:22)
[2018-07-24] MEDS ORDERED: FLECAINIDE ACET50 M1 PO (08:22)
[2018-07-24 11:14] VITALS: BP 135/90
--- NOTE | 2018-07-24 11:17 | NUR ---
DISCONTINUE IV AND TELE. PT UNDERSTANDS ALL FOLLOW UP ORDERS. WILL DSICHARGE TO HOME PER DR. ORDER.
[2018-07-26 11:10] LABS: ANA INTERPRETATION Negative (Negative)
== END 2018-07-24 11:44 | disposition home or self-care (01) | DRG 193 ==
LOC: M.ERS 16:53 → M.2W 18:12 → M.TBA-ER 18:12 → M.2W 19:52
PROVIDERS: Emergency Medicine Emergency Medical Services; Internal Medicine; Internal Medicine Cardiovascular Disease; ADMIT Family Medicine
PROC: 0W9B3ZZ Drainage of Left Pleural Cavity, Percutaneous Approach (ICD-10-PCS; principal; 2018-07-21)
DX: J15.4 Pneumonia due to other streptococci (principal); J96.01 Acute respiratory failure with hypoxia; N17.0 Acute kidney failure with tubular necrosis; I31.3 Pericardial effusion (noninflammatory); K21.9 Gastro-esophageal reflux disease without esophagitis; I48.0 Paroxysmal atrial fibrillation; N18.3 Chronic kidney disease, stage 3 (moderate); Z96.641 Presence of right artificial hip joint; Z98.42 Cataract extraction status, left eye; Z98.41 Cataract extraction status, right eye; Z90.49 Acquired absence of other specified parts of digestive tract; Z98.52 Vasectomy status; Z88.1 Allergy status to other antibiotic agents; Z88.8 Allergy status to other drugs, medicaments and biological substances; Z88.0 Allergy status to penicillin; Z82.49 Family history of ischemic heart disease and other diseases of the circulatory system; Z83.49 Family history of other endocrine, nutritional and metabolic diseases; J15.6 Pneumonia due to other Gram-negative bacteria

== ENCOUNTER 2018-08-07 21:10 | Inpatient (IN) | payer MEDICARE, OTHER ==
[~2018-08-07] VITALS: Ht 177.8 cm; Wt 99.2 kg
[~2018-08-07 21:10] MED LIST changes: +FLECAINIDE ACET50 M1 PO; +IBUPROFEN 400400 M2 PO; +LEVAQUIN 750 M750 MG PO
[2018-08-07 21:12] VITALS: BP 146/106
[2018-08-07 21:37] LABS: ABSOLUTE BASOPHILS 0.1 thou/uL (0.0-0.2); ABSOLUTE EOSINOPHILS 0.5 thou/uL (0.0-0.7); ABSOLUTE LYMPHOCYTES 2.4 thou/uL (0.8-5.3); ABSOLUTE NEUTROPHILS 6.2 thou/uL (1.6-8.1); BASOPHILS 1.4 %; EOSINOPHILS 4.5 %; HEMATOCRIT 41.9 % (42.0-52.0); HEMOGLOBIN 13.9 gm/dL (14.0-18.0); LYMPHOCYTES 23.7 %; MCH 27.3 pg (26.0-34.0); MCHC 33.2 g/dL (28.0-37.0); MCV 82.3 fL (80.0-100.0); MONOCYTES 9.5 %; MPV 7.4 fl. (7.2-11.1); NUCLEATED RBCS 0 /100WBC; PLATELET COUNT* 342 thou/uL (150-400); POLYS 60.9 %; RBC 5.09 mil/uL (4.50-6.00); RDW-CV 13.9 % (10.5-14.5); WBC 10.1 thou/uL (4.0-11.0)
[2018-08-07 21:44] LABS: ANION GAP 7 mmol/L (7-16); BUN 26 mg/dL (7-18); CALCIUM 9.3 mg/dL (8.5-10.1); CHLORIDE 101 mmol/L (98-107); CO2 28 mmol/L (21-32); CREATININE 1.3 mg/dL (0.6-1.3); GLUCOSE 90 mg/dL (70-99); POTASSIUM 3.9 mmol/L (3.5-5.1); SODIUM 136 mmol/L (136-145)
[2018-08-07 21:47] LABS: PROTIME 10.4 Seconds (9.20-11.50)
[2018-08-07 22:00] LABS: ALBUMIN 3.6 g/dL (3.4-5.0); ALKALINE PHOSPHATASE 128 U/L (46-116); LIPASE 276 U/L (73-393); MAGNESIUM 1.9 mg/dL (1.8-2.4); NT-PRO BRAIN NAT PEPTIDE 85 pg/mL (<300); SGOT 23 U/L (15-37); SGPT < 6 U/L (30-65); TOTAL BILIRUBIN 0.3 mg/dL (<0.1-1.0); TOTAL PROTEIN 7.9 g/dL (6.4-8.2); TROPONIN-I LEVEL 0.07 ng/mL (<0.06)
[2018-08-07 23:30] VITALS: BP 128/75
[2018-08-07 23:40] VITALS: BP 148/88
[2018-08-08 04:01] VITALS: BP 120/87
[2018-08-08 08:10] VITALS: BP 140/83
[2018-08-08 12:00] VITALS: BP 131/73
--- NOTE | 2018-08-08 14:24 | EKG ---
[place] [address] ELECTROCARDIOGRAM REPORT Name: KAYLEIGH ZAMBRANO Room: [address] ADM IN M.R.#: [id number] Admission: 08/07/18 Attend Phys: Igor Barroso Discharge: Date of : 44 Report #: [id number] THIS REPORT FOR: //name// [facility] ED Test Date: 2018-08-07 Test Time: 21:13:56 Pat Name: KAYLEIGH ZAMBRANO Department: Room: [facility] Gender: M Customer Equipment Engineer: LYNDA : 1940 Requested By: Nicolas Simmons Order Number: [id number] MD: Herber Tucker Measurements Intervals [place] Rate: 96 P: 55 HI: 228 QRS: 81 QRSD: 120 T: -20 QT: 385 QTc: 487 Interpretive Statements Sinus rhythm nonspecific t wave changes Prolonged [place] interval Probable left atrial enlargement Nonspecific intraventricular conduction delay Inferior infarct, age indeterminate Compared to ECG 07/19/2018 14:13:10 Atrial fibrillation no longer present Electronically Signed On 08-08-2018 14:24:32 PMP PROJECT MANAGER by Herber Tucker [email or web address] <ELECTRONICALLY SIGNED> By: Herber Tucker MD, FAC 08/08/18 1424 12 12 Herber Tucker MD, [facility] /EPI
--- NOTE | 2018-08-08 14:27 | EKG ---
[place] [address] ELECTROCARDIOGRAM REPORT Name: KAYLEIGH ZAMBRANO Room: [address] ADM IN M.R.#: [id number] Admission: 08/07/18 Attend Phys: Igor Barroso Discharge: Date of : 42 Report #: [id number] THIS REPORT FOR: //name// [facility] Test Date: 2018-08-08 Test Time: 04:13:56 Pat Name: KAYLEIGH ZAMBRANO Department: Room: [address] Gender: M Internet Sourcer: [facility] : 1940 Requested By: Servando Montes De Oca Order Number: [id number] Mariam MD: Herber Tucker Measurements Intervals [place] Rate: 91 P: 51 CO: 222 QRS: 83 QRSD: 121 T: -19 QT: 378 QTc: 466 Interpretive Statements Sinus rhythm Prolonged [place] interval Nonspecific intraventricular conduction delay Borderline T abnormalities, inferior leads Electronically Signed On 08-08-2018 14:26:46 DRY PRESS OPERATOR by Herber Tucker [email or web address] <ELECTRONICALLY SIGNED> By: Herber Tucker MD, [facility] 08/08/18 1426 0413 041 Herber Tucker MD, FACC /EPI
--- NOTE | 2018-08-08 14:31 | EKG ---
[place] [address] ELECTROCARDIOGRAM REPORT Name: KAYLEIGH ZAMBRANO Room: [address] ADM IN M.R.#: [id number] Admission: 08/07/18 Attend Phys: Igor Barroso Discharge: Date of : 44 Report #: [id number] THIS REPORT FOR: //name// [facility] Test Date: 2018-08-08 Test Time: 09:00:09 Pat Name: KAYLEIGH ZAMBRANO Department: Room: [address] Gender: M Hydrogenation Operator: JMATTY : 1940 Requested By: Servando Montes De Oca Order Number: [id number] Reading MD: Herber Tucker Measurements Intervals [place] Rate: 84 P: 46 NV: 222 QRS: 72 QRSD: 119 T: 4 QT: 397 QTc: 470 Interpretive Statements Sinus rhythm Prolonged [place] interval Nonspecific intraventricular conduction delay Low voltage, precordial leads Borderline T abnormalities, anterior leads Electronically Signed On 08-08-2018 14:31:32 DIRECTOR PHARMACOLOGY by Herber Tucker [email or web address] <ELECTRONICALLY SIGNED> By: Herber Tucker MD, [facility] 08/08/18 1431 09 09 Herber Tucker MD, [facility] /EPI
[2018-08-08 17:03] VITALS: BP 182/99
[2018-08-08] MEDS ORDERED: TYLENOL325 MG PO (17:03)
[2018-08-08 17:18] VITALS: BP 169/97
[2018-08-08 20:00] VITALS: BP 150/96
[2018-08-09] VITALS: BP 169/95
[2018-08-09 04:00] VITALS: BP 164/96
[2018-08-09 04:43] LABS: HEMATOCRIT 35.7 % (42.0-52.0); MCH 27.4 pg (26.0-34.0); MCHC 33.5 g/dL (28.0-37.0); MCV 81.6 fL (80.0-100.0); MPV 7.5 fl. (7.2-11.1); RBC 4.38 mil/uL (4.50-6.00); RDW-CV 14.1 % (10.5-14.5); WBC 9.3 thou/uL (4.0-11.0)
[2018-08-09 05:16] LABS: CALCIUM 8.7 mg/dL (8.5-10.1); CREATININE 1.2 mg/dL (0.6-1.3); MAGNESIUM 1.7 mg/dL (1.8-2.4); POTASSIUM 4.2 mmol/L (3.5-5.1)
[2018-08-09 07:45] VITALS: BP 166/94
[2018-08-09] MEDS ORDERED: GUAIFEN-CODEINE10 ML PO (08:58)
[2018-08-09 10:06] VITALS: BP 166/94
[2018-08-09] MEDS ORDERED: IBUPROFEN 400400 M2 PO (10:06)
--- NOTE | 2018-08-09 11:43 | EKG ---
[place] [address] ELECTROCARDIOGRAM REPORT Name: KAYLEIGH ZAMBRANO Room: [address] DIS IN M.R.#: [id number] Admission: 08/07/18 Attend Phys: Igor Barroso Discharge: 08/09/18 Date of : 44 Report #: [id number] THIS REPORT FOR: //name// [place] Test Date: 2018-08-08 Test Time: 17:02:43 Pat Name: KAYLEIGH ZAMBRANO Department: Room: [address] Gender: M Home Health Clinician: JOSIAH : 1940 Requested By: Servando Montes De Oca Order Number: [id number] Reading MD: Herber Tucker Measurements Intervals [place] Rate: 89 P: 55 [place]: 232 QRS: 88 QRSD: 121 T: -2 QT: 372 QTc: 453 Interpretive Statements Sinus rhythm Prolonged [place] interval Nonspecific intraventricular conduction delay Borderline T abnormalities, anterior leads Compared to ECG 08/08/2018 09:00:09 No significant changes Electronically Signed On 08-09-2018 11:43:32 DISPATCH MACHINE RUNNER by Herber Tucker [email or web address] <ELECTRONICALLY SIGNED> By: Herber Tucker MD, FACC 08/09/18 1143 1702 170 Herber Tucker MD, [facility] /EPI
--- NOTE | 2018-08-16 13:08 | CON ---
[address] [address] CONSULTATION Name: KAYLEIGH ZAMBRANO Room: [address] IN M.R.#: [id number] Admission: 08/07/18 Attend Phys: Igor Barroso Discharge: 08/09/18 Date of : 42 Report #: [id number] THIS REPORT FOR: //name// CC: Servando Shepard MD DATE OF SERVICE: 08/08/2018 TYPE OF REPORT: Cardiology consultation. HISTORY OF PRESENT ILLNESS: The patient is a 77-year-old white male who I was asked to see in the hospital today after he complained of chest pain. The patient states he actually had a stress test years ago. He notes that he is not very active at this time. He was actually visiting family in [place] in June when he had an episode of chest pain, went to the Emergency Room. He was evaluated there and sent home. He then was admitted here to [facility] 2 weeks ago with pneumonia. He apparently developed atrial fibrillation and was seen by Dr. Beavers. He was sent home on flecainide and an antibiotic. Since that time, his cough is improved. He has had no further palpitations. However, yesterday had an episode of chest pain on the right side of his chest. It is not related to exertion, meals or lifting. Denied any trauma to his chest. There is no radiation of the pain. No associated shortness of breath, diaphoresis or nausea. The pain is worse when he laid down. He denied any recent dyspnea on exertion or edema. He notes occasional skipped heartbeat, but no prolonged palpitations. I was asked to see him for further evaluation and treatment. PAST MEDICAL HISTORY: Significant for ankle surgery, 2 hip surgeries, cholecystectomy, hernia repair and hydrocele surgery. No hypertension, diabetes or hyperlipidemia. MEDICATIONS: Previously included Prilosec, Flomax, Proscar and Singulair. ALLERGIES: He has an allergy to PENICILLIN. FAMILY HISTORY: His father of heart attack. SOCIAL HISTORY: He is , lives in [place] with his . 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 REVIEW OF SYSTEMS: He has had no history of stroke, asthma, peptic ulcer disease, liver disease, kidney disease, cancer, psychiatric illness, chronic skin condition. PHYSICAL EXAMINATION: GENERAL: Revealed an elderly male, lying in bed. [place] [address] CONSULTATION Name: KAYLEIGH ZAMBRANO Room: [address]#: [id number] Admission: 08/07/18 Attend Phys: Igor Barroso Discharge: 08/09/18 Date of : 42 Report #: [id number] VITAL SIGNS: He had a blood pressure of 130/80, pulse is 90 and he is afebrile. HEENT: He is anicteric. Conjunctivae pink. Mucous members moist. NECK: Veins nondistended. No carotid bruits. Neck supple. CHEST: Clear to auscultation. CARDIOVASCULAR: Regular rate and rhythm without murmur. ABDOMEN: Soft and nontender. EXTREMITIES: Had no edema. Posterior tibial pulse 2+ bilaterally. SKIN: Warm and dry. NEUROLOGICAL: Nonfocal. LYMPHATIC: No adenopathy. MUSCULOSKELETAL: No joint effusion. RADIOLOGICAL DATA: His ECG done last night in the Emergency Room showed a sinus rhythm. There was a nonspecific T-wave change noted. His workup in the Emergency Room, he had a portable chest x-ray that showed no acute abnormality. CT scan of the chest was done last night using the PE protocol that showed no PE, a moderate-sized pericardial effusion. The patient did have an echocardiogram done in June when he was here with pneumonia that showed normal left ventricular function with mild circumferential pericardial effusion. LABORATORY DATA: Creatinine 1.3. Troponin 0.06. BNP 85. Recent TSH is 4.1 and T4 1.6. White blood cell count 10.1 and hemoglobin 13.9. IMPRESSION AND RECOMMENDATIONS: 1. Chest pain. Atypical for angina. Minimal risk factors. Recommend Lexiscan Cardiolite. 2. History of atrial fibrillation. No clinical recurrences, on flecainide. 3. Recent pneumonia. 4. History of prostatism. 5. Pericardial effusion. Reason unclear. I would recommend a repeat echocardiogram next month. <ELECTRONICALLY SIGNED> By: Herber Tucker MD, FACC 08/16/18 1308 1009 1958Herber Tucker MD, FACC /nt
== END 2018-08-09 10:40 | disposition home or self-care (01) | DRG 315 ==
LOC: M.ERS 21:10 → M.2W 22:52 → M.TBA-ER 22:52 → M.2W 23:33
PROVIDERS: Family Medicine; Internal Medicine; ADMIT Internal Medicine
DX: I30.9 Acute pericarditis, unspecified (principal); D68.69 Other thrombophilia; I20.9 Angina pectoris, unspecified; I48.91 Unspecified atrial fibrillation; Z96.641 Presence of right artificial hip joint; N40.0 Benign prostatic hyperplasia without lower urinary tract symptoms; N18.2 Chronic kidney disease, stage 2 (mild); K21.9 Gastro-esophageal reflux disease without esophagitis; Z98.41 Cataract extraction status, right eye; Z98.42 Cataract extraction status, left eye; Z90.49 Acquired absence of other specified parts of digestive tract; Z98.52 Vasectomy status; Z79.899 Other long term (current) drug therapy; Z88.0 Allergy status to penicillin; Z88.1 Allergy status to other antibiotic agents

== ENCOUNTER → 2018-10-04 | Outpatient (CLI) | payer MEDICARE, OTHER ==
[~2018-10-04] MED LIST changes: +GUAIFEN-CODEINE10 ML PO; +TYLENOL325 MG PO
--- NOTE | 2018-10-04 11:01 | 2DMMODE ---
[place] [address] 2 D/M-MODE ECHOCARDIOGRAM Name: KAYLEIGH ZAMBRANO Room: [facility]#: [id number] Admission: 10/04/18 Attend Phys: Ariel Beavers, Discharge: Date of : 44 Date of Service: 10/04/18 1101 Report #: [id number] THIS REPORT FOR: //name// APPROVED REPORT Study performed: 10/04/2018 09:01:54 EXAM: Comprehensive 2D, Doppler, and color-flow Echocardiogram Patient Location: Out-Patient Status: routine BSA: 2.14 HR: 72 bpm BP: 136/83 mmHg Other Information Study Quality: Fair Indications Pericarditis 2D Dimensions IVSd: 12.24 (7-11mm) LVOT Diam: 19.89 (18-24mm) LVDd: 43.08 mm PWd: 11.10 (7-11mm) Ascending Ao: 28.39 (22-36mm) LVDs: 17.34 (25-40mm) Aortic Root: 24.57 mm Volumes Left Atrial Volume (Systole) LA ESV Index: 16.10 mL/m2 Aortic Valve AoV Peak Telly.: 1.08 m/s AO Peak Gr.: 4.63 mmHg LVOT Max P.67 mmHg AO Mean Gr.: 2.87 mmHg LVOT Mean P.16 mmHg LVOT Max V: 0.82 m/s AO V2 VTI: 22.16 cm LVOT Mean V: 0.49 m/s FAUSTINO (VTI): 2.48 cm2 LVOT V1 VTI: 17.72 cm Mitral Valve E/A Ratio: 0.89 MV Decel. Time: 256.92 ms MV E Max Telly.: 0.52 m/s MV PHT: 74.51 [place] [address] 2 D/M-MODE ECHOCARDIOGRAM Name: KAYLEIGH ZAMBRANO Room: [facility]#: [id number] Admission: 10/04/18 Attend Phys: Ariel Beavers, Discharge: Date of : 44 Date of Service: 10/04/18 1101 Report #: [id number] MVA (PHT): 2.95 cm2 TDI E/Lateral E': 8.67 E/Medial E': 6.50 Medial E' Telly.: 0.08 m/s Lateral E' Telly.: 0.06 m/s Pulmonary Valve PV Peak Telly.: 1.16 m/s PV Peak Gr.: 5.34 mmHg Left Ventricle The left ventricle is normal size. There is normal LV segmental wall motion. There is normal left ventricular wall thickness. Left ventricular systolic function is normal. The left ventricular ejection fraction is within the normal range. LVEF is 60-65%. Grade I - abnormal relaxation pattern. Right Ventricle The right ventricle is normal size. The right ventricular systolic function is normal. Atria The left atrium size is normal. The right atrium size is normal. Aortic Valve Mild aortic valve sclerosis. Trace aortic regurgitation. There is no aortic valvular stenosis. Mitral Valve The mitral valve is normal in structure Mild mitral regurgitation. No evidence of mitral valve stenosis. Tricuspid Valve The tricuspid valve is normal in structure. There is no tricuspid valve regurgitation noted. Pulmonic Valve The pulmonary valve is normal in structure. Mild pulmonic regurgitation. Great Vessels The aortic root is normal in size. IVC is normal in size and collapses >50% [place] [address] 2 D/M-MODE ECHOCARDIOGRAM Name: KAYLEIGH ZAMBRANO [id number] Admission: 10/04/18 Attend Phys: Ariel Beavers, Discharge: Date of : 44 Date of Service: 10/04/18 1101 Report #: [id number] There is no pericardial effusion. <Conclusion> The left ventricle is normal size. There is normal left ventricular wall thickness. Left ventricular systolic function is normal. The left ventricular ejection fraction is within the normal range. LVEF is 60-65%. Grade I - abnormal relaxation pattern. The right ventricle is normal size. The left atrium size is normal. Mild aortic valve sclerosis. Trace aortic regurgitation. There is no aortic valvular stenosis. The mitral valve is normal in structure Mild mitral regurgitation. The tricuspid valve is normal in structure. There is no pericardial effusion. There is normal LV segmental wall motion. <ELECTRONICALLY SIGNED> By: Felipe Garsia MD, FACC 10/04/18 110 110 110 Felipe Garsia MD, FACC /INF
== END ==
LOC: M.CRD 08:24
DX: I34.0 Nonrheumatic mitral (valve) insufficiency (principal); I35.8 Other nonrheumatic aortic valve disorders; I31.3 Pericardial effusion (noninflammatory)

== ENCOUNTER 2019-01-18 00:38 | Inpatient (IN) | payer MEDICARE, OTHER ==
[~2019-01-18] VITALS: Ht 177.8 cm; Wt 92.5 kg
[2019-01-18] VITALS (29 sets, daily range): BP systolic 84–155; BP diastolic 48–109
[2019-01-18 01:05] LABS: ABSOLUTE BASOPHILS 0.1 thou/uL (0.0-0.2); ABSOLUTE EOSINOPHILS 0.4 thou/uL (0.0-0.7); ABSOLUTE LYMPHOCYTES 3.7 thou/uL (0.8-5.3); ABSOLUTE MONOCYTES 0.7 thou/uL (0.0-1.2); ABSOLUTE NEUTROPHILS 3.5 thou/uL (1.6-8.1); BASOPHILS 1.1 %; EOSINOPHILS 4.8 %; HEMATOCRIT 41.1 % (42.0-52.0); HEMOGLOBIN 14.1 gm/dL (14.0-18.0); LYMPHOCYTES 44.1 %; MCH 28.2 pg (26.0-34.0); MCHC 34.2 g/dL (28.0-37.0); MCV 82.4 fL (80.0-100.0); MONOCYTES 8.6 %; MPV 7.7 fl. (7.2-11.1); NUCLEATED RBCS 0 /100WBC; PLATELET COUNT* 233 thou/uL (150-400); POLYS 41.4 %; RBC 4.98 mil/uL (4.50-6.00); RDW-CV 13.8 % (10.5-14.5); WBC 8.4 thou/uL (4.0-11.0)
[2019-01-18 01:18] LABS: PROTIME 10.6 Seconds (9.20-11.50)
[2019-01-18 01:27] LABS: CALCIUM 9.8 mg/dL (8.5-10.1); CREATININE 1.7 mg/dL (0.6-1.3); POTASSIUM 4.8 mmol/L (3.5-5.1); TROPONIN-I LEVEL 0.31 ng/mL (<0.06)
[2019-01-18 01:29] LABS: ALBUMIN 3.7 g/dL (3.4-5.0); TOTAL BILIRUBIN 0.4 mg/dL (<0.1-1.0); TOTAL PROTEIN 7.6 g/dL (6.4-8.2)
--- NOTE | 2019-01-18 09:24 | CARD ---
[address] [address] CARDIAC CATH REPORT Name: KAYLEIGH ZAMBRANO Room: [address] ADM IN M.R.#: [id number] Admission: 01/18/19 Attend Phys: Herber Tucker MD, F Discharge: Date of : 44 Report #: [id number] THIS REPORT FOR: //name// APPROVED REPORT Study performed: 01/18/2019 01:10:44 Patient Details Patient Status: ED Room #: The patient is a 78 year-old male Event Personnel Анна Moreira RN RN, Aida Weston, , Kelvin Lawler Blick, David Cow Puncher Procedures Performed Art Access - R femoral artery* PATRICK Place w/wo Plasty Single CIRC [id number] , Left Ventriculogram Indication Abnormal ECG, STEMI , Chest pain Admission/Lab Medications/Medications given during procedure Glycoprotein IllbIlla Inhibitors, Heparin Unfract. Procedure Narrative The patient was brought emergently to the Cardiac Catheterization Laboratory and was prepped and draped in a sterile manner. The right femoral was infiltrated with 2% Lidocaine subcutaneous anesthesia. A 6fr Ultimum Sheath sheath was inserted into the right femoral artery. Coronary angiography was performed using coronary diagnostic catheters. The right coronary system was accessed and visualized with a Diagnostic catheter. The left coronary system was accessed and visualized with a Diagnostic catheter. The left ventricle was accessed and visualized with a Diagnostic catheter. Left ventricular/Aortic Valve gradient assessed via catheter pullback. Left ventriculogram was performed in VÁZQUEZ projection. Closure device was deployed with a 6 Fr Angioseal STS 6Fr. The patient tolerated the procedure well and there were no complications associated with the procedure. There was no hematoma. Intraoperative Conscious Sedation [place] [address] CARDIAC CATH REPORT Name: KAYLEIGH ZAMBRANO Room: [address] IN [facility]#: [id number] Admission: 01/18/19 Attend Phys: Herber Tucker MD, F Discharge: Date of : 44 Report #: [id number] Fluoro Time: 6.9 minutes Contrast Type and Amount: Visipaque 130 ml Coronary Angiography The patient's coronary anatomy is co- dominant. Diagnostic Cath Left Main 0% stenosis LAD 60% proximal, 80% mid, and 60% distal stenosis Circumflex 80% proximal, 70% mid, and 100% distal stenosis Right Coronary 60% proximal, and 50% distal stenosis R PDA 90% distal stenosis Left Ventriculography The left ventricular ejection fraction is estimated to be 25-30%. Left ventricular wall motion abnormalities are present. There is no mitral insufficiency. apical akinesis noted Hemodynamics The aortic pressure is 157/91 mmHg with a mean of 105 mmHg. The left ventricular pressure is 113/20 mmHg with a mean of mmHg. The left ventricular end diastolic pressure is 21 mmHg. There was no gradient across the aortic valve upon pullback. Pullback from the left ventricle to the aorta revealed no gradient across the aortic valve. PCI Technique Lesion Anticoagulation was achieved with Heparin. bolus of iv aggrastat given Patient was preloaded with Plavix. Percutaneous coronary intervention was performed on the distal circumflex artery segment. The lesion stenosis prior to intervention was 100% with YUDITH 0 flow. A 6F XB 4.0 Guide Catheter was used to engage the lm ostium. A IG: BMW 190cm Interventional Guidewire was used to cross the lesion. BALLOON DILATION A Balloon catheter Trek RX 2.5 X 8 was inserted and inflated up to 6.00atm for 6seconds. Repeat angiography revealed the following post-dilatation results: 50% stenosis. Additional Inflation: 8.00atm for 6seconds. STENT DEPLOYMENT A drug-eluting stent Xience Farida 2.5X12mm was inserted and inflated up to 8.00atm for 13seconds. Additional Inflation: 8.00atm for 7seconds. 2.5 x 12 mm drug eluting stent [place] [address] CARDIAC CATH REPORT Name: KAYLEIGH ZAMBRANO Room: [address] IN M.R.#: [id number] Admission: 01/18/19 Attend Phys: Herber Tucker MD, F Discharge: Date of : 44 Report #: [id number] circumflex. 3.0 x 12 mm stent placed in the proximal circumflex. Final angiography reveals 0 % stenosis with YUDITH 3 flow. PCI Technique Lesion 3 Percutaneous Coronary Intervention was performed on the proximal circumflex artery segment. Stent Deployment Additional Inflation: 19.00atm for 8seconds. Conclusion 1. lad had a 60% proximal stenosis and 80% mid stenosis 2. acute occlusion of the distal circumflex 3. successful placement of 3 drug eluting stents in the circumflex 4. LVEF 25-30% Recommendations Cardiac Rehabilitation Referral Aggressive Medical Therapy Medications Administered Clopidogrel <ELECTRONICALLY SIGNED> By: Herber Tucker MD, FACC 01/18/19923 3 3Dadiomedes Tucker MD, FACC /INF
[2019-01-18 10:19] LABS: HEMATOCRIT 41.3 % (42.0-52.0); HEMOGLOBIN 13.9 gm/dL (14.0-18.0); MCH 27.9 pg (26.0-34.0); MCHC 33.7 g/dL (28.0-37.0); MCV 82.8 fL (80.0-100.0); MPV 8.1 fl. (7.2-11.1); RBC 4.98 mil/uL (4.50-6.00); RDW-CV 13.9 % (10.5-14.5); WBC 7.3 thou/uL (4.0-11.0)
--- NOTE | 2019-01-18 10:42 | EKG ---
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 : 1940 Requested By: Carly Trejo Order Number: [id number] MD: Speedy Kuo Measurements Intervals [place] Rate: 82 P: 56 [place]: 201 QRS: 23 QRSD: 112 T: 18 QT: 389 QTc: 455 Interpretive Statements Sinus rhythm Inferior infarct, old Compared to ECG 08/08/2018 17:02:43 Myocardial infarct finding now present First degree AV block no longer present Intraventricular conduction delay no longer present T-wave abnormality no longer present Electronically Signed On 01-18-2019 10:41:45 CDT by Speedy Kuo [email or web address] <ELECTRONICALLY SIGNED> By: Speedy Kuo MD, FACC 01/18/19 1041 0359 0359 Speedy Kuo MD, FAC /EPI
--- NOTE | 2019-01-18 10:42 | EKG ---
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 : 1940 Requested By: Herber Tucker Order Number: [id number] Reading MD: Speedy Kuo Measurements Intervals [place] Rate: 81 P: 59 [place]: 201 QRS: 6 QRSD: 117 T: 19 QT: 394 QTc: 458 Interpretive Statements Sinus rhythm Nonspecific intraventricular conduction delay Inferior infarct, old Compared to ECG 08/08/2018 17:02:43 Myocardial infarct finding now present First degree AV block no longer present T-wave abnormality no longer present Electronically Signed On 01-18-2019 10:42:07 CDT by Speedy Kuo [email or web address] <ELECTRONICALLY SIGNED> By: Speedy Kuo MD, [facility] 01/18/19 1042 0359 0359 Speedy Kuo MD, [facility] /EPI
--- NOTE | 2019-01-18 10:42 | EKG ---
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: : 1940 Requested By: Herber Tucker Order Number: [id number] Reading MD: Speedy Kuo Measurements Intervals [place] Rate: 73 P: 61 [place]: 194 QRS: 54 QRSD: 114 T: 81 QT: 384 QTc: 424 Interpretive Statements Sinus rhythm Incomplete right bundle branch block Inferior infarct, acute Compared to ECG 08/08/2018 17:02:43 Incomplete right bundle-branch block now present Myocardial infarct finding now present First degree AV block no longer present Intraventricular conduction delay no longer present T-wave abnormality no longer present Electronically Signed On 01-18-2019 10:41:55 CDT by Speedy Kuo [email or web address] <ELECTRONICALLY SIGNED> By: Speedy Kuo MD, FAC 01/18/19 1041 0044 Speedy Kuo MD, [facility] /EPI
[2019-01-18 10:43] LABS: ALBUMIN 3.4 g/dL (3.4-5.0); ALKALINE PHOSPHATASE 90 U/L (46-116); ANION GAP 8 mmol/L (7-16); BUN 33 mg/dL (7-18); CALCIUM 9.2 mg/dL (8.5-10.1); CHLORIDE 104 mmol/L (98-107); CHOLESTEROL 227 mg/dL (<200); CO2 26 mmol/L (21-32); CREATININE 1.3 mg/dL (0.6-1.3); GLUCOSE 118 mg/dL (70-99); HDL CHOLESTEROL 29 mg/dL (>40); LDL CHOLESTEROL 159 mg/dL (<100); POTASSIUM 4.7 mmol/L (3.5-5.1); SERUM ASSESSMENT Clear; SGOT 101 U/L (15-37); SGPT 44 U/L (30-65); SODIUM 138 mmol/L (136-145); TC:HDL 7.8 Ratio (Not establshd); TOTAL BILIRUBIN 0.5 mg/dL (<0.1-1.0); TOTAL PROTEIN 7.1 g/dL (6.4-8.2); TRIGLYCERIDE 196 mg/dL (<150); TROPONIN-I LEVEL 25.05 ng/mL (<0.06); VLDL 39 mg/dL (<40)
--- NOTE | 2019-01-18 10:44 | EKG ---
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: : 1940 Requested By: Herber Tucker Order Number: [id number] Reading MD: Speedy Kuo Measurements Intervals [place] Rate: 59 P: 20 [place]: 196 QRS: 56 QRSD: 111 T: 14 QT: 427 QTc: 423 Interpretive Statements Sinus rhythm Inferior infarct, old Compared to ECG 08/08/2018 17:02:43 Myocardial infarct finding now present First degree AV block no longer present Intraventricular conduction delay no longer present T-wave abnormality no longer present Electronically Signed On 01-18-2019 10:44:31 CDT by Speedy Kuo [email or web address] <ELECTRONICALLY SIGNED> By: Speedy Kuo MD, [facility] 01/18/19 1044 5 5 Speedy Kuo MD, FAC /EPI
--- NOTE | 2019-01-18 15:53 | H ---
[place] [address] HISTORY AND PHYSICAL Name: KAYLEIGH ZAMBRANO AMRIT Room: [address] ADM IN M.R.#: [id number] Admission: 01/18/19 Attend Phys: Herber Tucker MD, F Discharge: Date of : 44 Report #: [id number] THIS REPORT FOR: //name// CC: Herbre Bergman MD DATE OF SERVICE: 01/18/2019 HISTORY OF PRESENT ILLNESS: The patient is a 78-year-old white male who was brought to the emergency room complaining of chest pain. The patient apparently presented last June with pneumonia. He apparently was having chest pain. He was seen by my partner, Dr. Beavers and apparently was felt to have evidence of pericarditis. He apparently went into atrial fibrillation and was started on flecainide. He returned to see Dr. Beavers in the Cardiology Clinic at a later period of time, he was taken off of flecainide. He apparently had a stress test in the past that was unremarkable. He was doing well until last night when he noticed the onset of the left-sided chest pain, went into his arm, became short of breath. This persisted for a couple of hours. He finally called the ambulance and brought here to [place]. He arrived here at approximately 12:00 midnight. ECG showed evidence of acute inferior ST segment elevation myocardial infarction. I was asked to see him on an emergent basis. This time, he continues to have chest pain. He is not very active, but denies significant exertional dyspnea, palpitations, syncope, edema. PAST MEDICAL HISTORY: He has had previous cholecystectomy. He has had hip surgery. No history of hypertension, diabetes, hyperlipidemia. MEDICATIONS: Prilosec. ALLERGIES: He has an allergy to PENICILLIN and ASPIRIN which he developed a rash. FAMILY HISTORY: Positive for heart disease. SOCIAL HISTORY: He is . No smoking or alcohol use. REVIEW OF SYSTEMS: He has had no history of stroke, asthma, peptic ulcer disease, liver disease, kidney disease, cancer or psychiatric illness, chronic skin condition. PHYSICAL EXAMINATION: GENERAL: Revealed an elderly male, appeared in mild distress. VITAL SIGNS: Blood pressure 130/70, pulse 70. HEENT: Mucous membranes are moist. NECK: Veins do not appear distended. No carotid bruits[place] [address] HISTORY AND PHYSICAL Name: KAYLEIGH ZAMBRANO Room: [address]#: [id number] Admission: 01/18/19 Attend Phys: Herber Tucker MD, F Discharge: Date of : 44 Report #: [id number] CHEST: Clear to auscultation. CARDIOVASCULAR: Regular rate and rhythm, no murmur. ABDOMEN: Soft. EXTREMITIES: Had no edema. Dorsalis pedis pulse 2+ on the right, cannot be palpated on the left. SKIN: Cool and dry. NEUROLOGIC: Nonfocal. LABORATORY DATA: ECG, sinus rhythm, ST segment elevation in lead 3. Reciprocal ST segment depression in 1 and aVL. IMPRESSION AND RECOMMENDATIONS: 1. Acute inferior ST elevation myocardial infarction. Recommend cardiac catheterization. 2. History of atrial fibrillation. 3. Chronic kidney disease. Time spent with the patient was from 1:45 a.m. to 2:45 a.m. <ELECTRONICALLY SIGNED> By: Herber Tucker MD, [facility] 01/18/19 1553 0255 0309Dadiomedes Tucker MD, [facility] /nt
[2019-01-19] VITALS (7 sets, daily range): BP systolic 92–112; BP diastolic 56–66
[2019-01-19 01:50] LABS: CALCIUM 9.5 mg/dL (8.5-10.1); CREATININE 1.6 mg/dL (0.6-1.3); POTASSIUM 4.6 mmol/L (3.5-5.1)
[2019-01-19 01:52] LABS: TROPONIN-I LEVEL 23.03 ng/mL (<0.06)
[2019-01-19] MEDS ORDERED: SPIRONOLACTONE25 M1 PO (09:51)
[2019-01-19] MEDS ORDERED: NITROGLYCERIN0.4 MG SUBLING (09:52)
[2019-01-19] MEDS ORDERED: PLAVIX 75 MG TA75 M1 PO (09:54)
[2019-01-19] MEDS ORDERED: ATORVASTATIN CA40 MG PO (09:55)
[2019-01-19] MEDS ORDERED: CARVEDILOL3.125 MG PO (09:56)
[2019-01-19] MEDS ORDERED: CILOSTAZOL 100100 M1 PO (09:57)
--- NOTE | 2019-01-19 11:13 | EKG ---
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: : 1940 Requested By: Herber Tucker Order Number: [id number] Reading MD: Herber Tucker Measurements Intervals [place] Rate: 84 P: 46 [place]: 190 QRS: 104 QRSD: 102 T: 3 QT: 369 QTc: 437 Interpretive Statements Sinus rhythm Inferiorposterior infarct, old Compared to ECG 01/18/2019 09:16:33 Myocardial infarct finding still present Electronically Signed On 01-19-2019 11:12:59 CDT by Herber Tucker [email or web address] <ELECTRONICALLY SIGNED> By: Herber Tucker MD, [facility] 01/19/19 1112 0806 0806 Herber Tucker MD, [facility] /EPI
--- NOTE | 2019-01-20 13:22 | D ---
[address] [address] DISCHARGE SUMMARY Name: KAYLEIGH ZAMBRANO Room: [address] IN M.R.#: [id number] Admission: 01/18/19 Attend Phys: Herber Tucker MD, F Discharge: 01/19/19 Date of : 44 Report #: [id number] THIS REPORT FOR: //name// CC: DR SHOBHA BERGMAN DATE OF SERVICE: 01/19/2019 DISCHARGE DIAGNOSES: 1. Acute inferior wall ST segment elevation myocardial infarction. 2. Coronary artery disease. 3. Ischemic cardiomyopathy. 4. Prostatism. 5. History of atrial fibrillation. 6. Hyperlipidemia. CONSULTANTS: None. PROCEDURES: Emergent left heart catheterization with placement of 3 drug-eluting stents in the circumflex artery via the femoral approach. PRIMARY CARE PHYSICIAN: Dr. Bergman, [place], [place]. HISTORY OF PRESENT ILLNESS: The patient is a 78-year-old white male who came to the Emergency Room complaining of chest pain. The patient had no previous history of heart disease. However, he initially began to complain of chest pain last fall when he was in [place]. He apparently underwent a nuclear stress test there that showed no significant ischemia. He was subsequently admitted here to [place] last June with chest pain. He also had a CT scan of the chest that showed no pulmonary embolus or dissection. There was a moderate pericardial effusion. When he was admitted to [place], he was noted to be in atrial fibrillation. He converted to sinus rhythm. He was seen by my partner, Dr. Beavers and started on flecainide. He is felt to have had pneumonia and possible pericarditis. He did undergo an echocardiogram here at [place] in 06/2018 that showed mild pericardial effusion with normal left ventricular function. He returned to see Dr. Beavers in the clinic in November and since he has had no recurrent atrial fibrillation, he was taken off the flecainide. He is felt to have a LYNDA score of 1 and was not anticoagulated. The patient states he has actually had no further palpitations. He actually had a followup echocardiogram in September of this year that showed normal left ventricular function, aortic sclerosis. No pericardial effusion. The patient states that he was doing well until the evening prior to admission when he developed pain in his chest, became short of breath. This waxed and waned for several hours. He finally called the ambulance and brought to [place] where he arrived at about 12 midnight. ECG showed evidence of acute [place] [address] DISCHARGE SUMMARY Name: KAYLEIGH ZAMBRANO Room: [address] IN M.R.#: [id number] Admission: 01/18/19 Attend Phys: Herber Tucker MD, F Discharge: 01/19/19 Date of : 44 Report #: [id number] myocardial infarction. I was asked to see him on an emergent basis. On arrival, the patient continued to have chest pain. PAST MEDICAL HISTORY: He has had previous cholecystectomy, hip surgery. There was actually no history of hypertension, diabetes, hyperlipidemia. MEDICATIONS: On admission consisted of Zyrtec, Proscar, Singulair, omeprazole, Zantac, Flomax, tramadol. ALLERGIES: HE HAS AN ALLERGY TO ASPIRIN TO WHICH HE DEVELOPED A RASH. PHYSICAL EXAMINATION: GENERAL: Elderly male, appeared in mild distress. VITAL SIGNS: Blood pressure 130/70, pulse 70. CHEST: Clear to auscultation. CARDIAC: Regular rate and rhythm. ABDOMEN: Soft. EXTREMITIES: Had no edema. SKIN: Warm, dry. DIAGNOSTIC DATA: ECG, sinus rhythm, ST segment elevation in lead 3. Reciprocal ST segment depression in 1 and aVL. His chest x-ray showed mild interstitial prominence. LABORATORY DATA: Sodium 142, BUN was 33, creatinine is 1.3. His SGOT increased to 101. SGPT 42. His troponin peaked at 25.05. Cholesterol 227, triglyceride 196, HDL 29, LDL 159. TSH last June had been 4.1. T4 of 1.1. White blood cell count 8.4, hemoglobin 14.1, hematocrit 41.1. HOSPITAL COURSE: The patient was taken urgently to the cardiac catheterization lab at approximately 1:00 a.m. Procedures performed to the right femoral artery. Results showed diffuse multivessel coronary artery disease with a 60% narrowing of the proximal LAD. The distal LAD had a 90% narrowing in a small part of the artery at the takeoff of a small diagonal branch. The circumflex was codominant, had 80% proximal, 70% mid and the distal circumflex appeared completely occluded with thrombus. The right coronary artery had a 60% proximal narrowing and a small posterior descending branch had 90% distal stenosis. Ejection fraction was only 30% with a large area of apical akinesia. LVEDP was 25. He was then given heparin and Aggrastat. I placed 3 drug-eluting stents in the circumflex artery. An Angio-Seal was placed. He tolerated the procedure well. Fortunately, he had no further chest pain, shortness of breath or arrhythmias. He began to ambulate with cardiac rehabilitation. An Angio-Seal was placed in the right femoral artery. He developed no significant hematoma. At the time of discharge, the patient had no complaints. Followup ECG showed a sinus rhythm, inferior Q-waves. The results were discussed with the patient, and it is felt that he had severe diffuse coronary artery disease and [address] [address] DISCHARGE SUMMARY Name: KAYLEIGH ZAMBRANO Room: [address] IN .Rhonda.#: [id number] Admission: 01/18/19 Attend Phys: Herber Tucker MD, F Discharge: 01/19/19 Date of : 44 Report #: [id number] significant left ventricular dysfunction. He was started on beta brice and ARB, but developed hypotension. The patient did agree to enroll in the [place] trial, which studies patients who have heart failure following a myocardial infarction and randomized this patient to either ramipril or Entresto. The patient was discharged on his home medications include Proscar 5 mg a day, Singulair 10 mg a day, Prozac 40 mg a day, ranitidine 150 mg twice a day, Flomax 0.4 mg a day. He was discharged on Plavix 75 mg a day. Since the patient has a true ASPIRIN ALLERGY, he was not given aspirin. Instead, he was discharged on Pletal 100 mg twice day. He was given nitroglycerin to take as needed for chest pain. Starting Coreg 3.125 mg twice a day. He was not given ARB or PHILIPPE inhibitor because of low blood pressure. He started Lipitor 40 mg a day for his hyperlipidemia and Aldactone 25 mg a day. I did recommend he gradually increase activity and enroll in cardiac rehabilitation. He is scheduled to see my nurse practitioner in the clinic next week. At that time, he would be randomized to either Entresto or ramipril as part of the [place] trial. His prognosis is guarded due to his ischemic cardiomyopathy. If he continues to have chest pain, stenting of the LAD could be attempted. He was discharged and returned to care of Dr. Felipe for routine medical care. If he has recurrent atrial fibrillation, I would consider anticoagulation and amiodarone. I would also recommend a followup echocardiogram in 2 months. If ejection fraction continues to be less than 35%, I would consider referring the patient for implantation of defibrillator for primary prevention of sudden . He wished to contact my office if he had bleeding, chest pain, shortness of breath. At the time of discharge, he had a blood pressure 110/60, pulse is 70. Additional lab work during his hospitalization included a followup hemoglobin 13.9. Following the cardiac catheterization, the creatinine went from 1.3-1.6. It had actually been up to 2.7 last fall. <ELECTRONICALLY SIGNED> By: Herber Tucker MD, [facility] 01/20/19 1322 0856 [id number] Tucker MD, FAC /nt
== END 2019-01-19 13:48 | disposition home or self-care (01) | DRG 246 ==
LOC: M.CL 00:38 → M.ERS 00:38 → M.TBA-ER 02:29 → M.ICU 02:29 → M.2W 01-19 06:19
PROVIDERS: Emergency Medicine; ADMIT Internal Medicine Cardiovascular Disease
PROC: 027036Z Dilation of Coronary Artery, One Artery with Three Drug-eluting Intraluminal Devices, Percutaneous Approach (ICD-10-PCS; principal; 2019-01-18)
PROC: 4A023N7 Measurement of Cardiac Sampling and Pressure, Left Heart, Percutaneous Approach (ICD-10-PCS; 2019-01-18)
PROC: B2111ZZ Fluoroscopy of Multiple Coronary Arteries using Low Osmolar Contrast (ICD-10-PCS; 2019-01-18)
PROC: B2151ZZ Fluoroscopy of Left Heart using Low Osmolar Contrast (ICD-10-PCS; 2019-01-18)
DX: I21.19 ST elevation (STEMI) myocardial infarction involving other coronary artery of inferior wall (principal); I50.23 Acute on chronic systolic (congestive) heart failure; K21.9 Gastro-esophageal reflux disease without esophagitis; N40.0 Benign prostatic hyperplasia without lower urinary tract symptoms; N18.2 Chronic kidney disease, stage 2 (mild); I25.10 Atherosclerotic heart disease of native coronary artery without angina pectoris; I25.5 Ischemic cardiomyopathy; E78.5 Hyperlipidemia, unspecified; I95.9 Hypotension, unspecified; I48.91 Unspecified atrial fibrillation; Z87.01 Personal history of pneumonia (recurrent); Z90.49 Acquired absence of other specified parts of digestive tract; Z88.6 Allergy status to analgesic agent; Z88.0 Allergy status to penicillin; Z79.899 Other long term (current) drug therapy; Z82.49 Family history of ischemic heart disease and other diseases of the circulatory system; Z98.42 Cataract extraction status, left eye; Z98.41 Cataract extraction status, right eye; Z98.52 Vasectomy status; Z88.1 Allergy status to other antibiotic agents; Z88.8 Allergy status to other drugs, medicaments and biological substances

== ENCOUNTER → 2019-01-24 | Outpatient (CLI) | payer MEDICARE, OTHER ==
[~2019-01-24] MED LIST changes: +ATORVASTATIN CA40 MG PO; +CARVEDILOL3.125 MG PO; +CILOSTAZOL 100100 M1 PO; +NITROGLYCERIN0.4 MG SUBLING; +PLAVIX 75 MG TA75 M1 PO; +SPIRONOLACTONE25 M1 PO
[2019-01-24 11:58] LABS: CREATININE 1.5 mg/dL (0.6-1.3); POTASSIUM 5.2 mmol/L (3.5-5.1)
== END ==
LOC: M.LAB 11:13
PROVIDERS: Registered Nurse
DX: I11.0 Hypertensive heart disease with heart failure (principal); I50.22 Chronic systolic (congestive) heart failure

== ENCOUNTER → 2019-02-07 | Outpatient (CLI) | payer MEDICARE, OTHER ==
[2019-02-07 09:17] LABS: CALCIUM 9.5 mg/dL (8.5-10.1); CREATININE 1.6 mg/dL (0.6-1.3); POTASSIUM 4.9 mmol/L (3.5-5.1)
== END ==
LOC: M.LAB 08:49
PROVIDERS: Registered Nurse
DX: I25.5 Ischemic cardiomyopathy (principal)

== ENCOUNTER 2019-04-15 12:06 | Observation (INO) | payer MEDICARE, OTHER ==
[~2019-04-15] VITALS: Ht 177.8 cm; Wt 94.8 kg
[~2019-04-15 12:06] MED LIST changes: -ATORVASTATIN CA40 MG PO; +LIPITOR40 MG PO
[2019-04-15 12:16] VITALS: BP 88/54
[2019-04-15] MEDS ORDERED: DIPYRIDAMOLE 7575 M1 PO (12:21)
[2019-04-15] MEDS ORDERED: LISINOPRIL2.5 MG PO (12:22)
[2019-04-15] MEDS ORDERED: MEGA RED KRILL OIL (12:23)
[2019-04-15 12:38] LABS: ABSOLUTE BASOPHILS 0.1 thou/uL (0.0-0.2); ABSOLUTE EOSINOPHILS 0.2 thou/uL (0.0-0.7); ABSOLUTE LYMPHOCYTES 1.9 thou/uL (0.8-5.3); ABSOLUTE MONOCYTES 0.5 thou/uL (0.0-1.2); ABSOLUTE NEUTROPHILS 4.2 thou/uL (1.6-8.1); BASOPHILS 0.8 %; EOSINOPHILS 2.9 %; HEMATOCRIT 42.4 % (42.0-52.0); LYMPHOCYTES 28.3 %; MCH 28.1 pg (26.0-34.0); MCV 85.1 fL (80.0-100.0); NUCLEATED RBCS 0 /100WBC; PLATELET COUNT* 243 thou/uL (150-400); RBC 4.98 mil/uL (4.50-6.00); RDW-CV 15.6 % (10.5-14.5); WBC 6.9 thou/uL (4.0-11.0)
[2019-04-15 12:42] LABS: ANION GAP 11 mmol/L (7-16); BUN 41 mg/dL (7-18); CALCIUM 9.6 mg/dL (8.5-10.1); CHLORIDE 104 mmol/L (98-107); CO2 24 mmol/L (21-32); CREATININE 1.9 mg/dL (0.6-1.3); GLUCOSE 144 mg/dL (70-99); POTASSIUM 4.8 mmol/L (3.5-5.1); SODIUM 139 mmol/L (136-145)
[2019-04-15 12:49] LABS: APTT 28.7 Seconds (25.0-31.3); PROTIME 10.7 Seconds (9.20-11.50)
[2019-04-15 12:53] LABS: ALKALINE PHOSPHATASE 109 U/L (46-116); LIPASE 360 U/L (73-393); NT-PRO BRAIN NAT PEPTIDE 252 pg/mL (<300); SGOT 30 U/L (15-37); SGPT 48 U/L (30-65); TOTAL BILIRUBIN 0.9 mg/dL (<0.1-1.0); TOTAL PROTEIN 7.7 g/dL (6.4-8.2); TROPONIN-I LEVEL <0.06 ng/mL (<0.06)
[2019-04-15 15:22] VITALS: BP 110/58; BP 130/84
--- NOTE | 2019-04-15 18:35 | NUR ---
PT ADMITTED TO UNIT. NO C/O CHEST PAIN. PT 94% ON 2L NC. AT BEDSIDE.
[2019-04-15 20:00] VITALS: BP 118/82
[2019-04-15 20:02] VITALS: BP 137/77
[2019-04-15 20:04] VITALS: BP 124/73
[2019-04-16] VITALS: BP 127/71
[2019-04-16 04:00] VITALS: BP 121/74
[2019-04-16 05:13] LABS: ANION GAP 7 mmol/L (7-16); BUN 32 mg/dL (7-18); CALCIUM 8.9 mg/dL (8.5-10.1); CHLORIDE 107 mmol/L (98-107); CHOLESTEROL 134 mg/dL (<200); CO2 26 mmol/L (21-32); CREATININE 1.3 mg/dL (0.6-1.3); GLUCOSE 94 mg/dL (70-99); HDL CHOLESTEROL 28 mg/dL (>40); LDL CHOLESTEROL 79 mg/dL (<100); MAGNESIUM 1.8 mg/dL (1.8-2.4); SODIUM 140 mmol/L (136-145); TC:HDL 4.8 Ratio (Not establshd); TRIGLYCERIDE 137 mg/dL (<150); VLDL 27 mg/dL (<40)
[2019-04-16 05:18] LABS: SERUM ASSESSMENT CLEAR
[2019-04-16 08:00] VITALS: BP 121/81
--- NOTE | 2019-04-16 09:00 | NUR ---
RECEIVED REPORT FROM TERRANCE OSCAR. ASSUMED CARE OF PT AROUND 0730. PT A&O X4. VSS. LIQUID CENTER ASSEMBLER IN PLACE TRACING SB TO SR WITH 1ST DEGREE. AM ASSESSMENT AND VITALS COMPLETED CHARTED. MEDS PER EMAR. AT BEDSIDE. PT DENIES PAIN OR DISCOMFORT. PT HOPEFUL TO BE DISCHARGED. PT CURRENTLY IN BED. CALL LIGHT IS WITHIN REACH. HOURLY ROUNDING PERFOMRED. FALL PRECAUTIONS IN PLACE. WCTM FOR DURATION OF SHIFT.
[2019-04-16] MEDS ORDERED: PROTONIX40 M1 PO (11:48)
[2019-04-16 12:00] VITALS: BP 116/67
[2019-04-16 12:59] VITALS: BP 116/67
--- NOTE | 2019-04-16 14:01 | NUR ---
DISCHARGE ORDERS RECEIVED. DISCHARGE COMPLETED CHARTED. DISCHARGE SUMMARY, CARE NOTES, AND SCRIPT GIVEN TO PT, PT COMMUNICATES UNDERSTANDING. IV AND BUS AND RAIL OPERATOR REMOVED. ALL BELONGINGS GATHERED AND SENT HOME WITH PT. PT LEFT UNIT WALKING WITH NURSING STAFF. PT LEFT HOSPITAL IN CAR WITH SPOUSE.
[2019-04-17 02:10] LABS: GLYCOHEMOGLOBIN (HGB A1C) 5.8 % (4.8-5.6)
--- NOTE | 2019-04-18 12:53 | CON ---
[address] [address] CONSULTATION Name: JUAN MANUELKAYLEIGH PINONNE Room: [address] Zeeshan Reid#: [id number] Admission: 04/15/19 Attend Phys: Kelvin Díaz MD Discharge: 04/16/19 Date of : 44 Report #: [id number] THIS REPORT FOR: //name// CC: Herber Díaz CARDIOLOGY CONSULTATION HISTORY OF PRESENT ILLNESS: The patient is a 78-year-old white male who came to the Emergency Room today complaining of lightheadedness. The patient initially presented in last June in [place]. He was having epigastric discomfort. He apparently had a nuclear stress test that showed no significant ischemia. He drove back from [place] and was admitted here to [facility] and was felt to have pneumonia. He apparently was having chest pain at that time. He did go into atrial fibrillation, was placed on flecainide, which he took for about a month and then flecainide was stopped. He then presented in December with an episode of chest pain. He called EMS and brought here to [facility] arrived at 12:00 midnight. ECG showed evidence of acute inferior STEMI. I took him urgently to the cardiac catheterization lab and performed an emergent cardiac catheterization. His urgent cardiac catheterization was performed from the right femoral artery that showed the distal LAD had a 90% stenosis, the circumflex had an 80% proximal stenosis, the distal circumflex appeared to be occluded with thrombus, the right coronary artery had a 90% distal stenosis and ejection fraction of 30%. He was given heparin and Aggrastat. I placed 3 drug-eluting stents in the circumflex. An Angio-Seal was placed and he tolerated this well. Previously had been on no cardiac medications. He was started on beta brice and an ARB, but developed hypotension. He was started on Plavix. He has a TRUE ASPIRIN allergy and was started on Pletal. He was not given an PHILIPPE or ARB because of low blood pressure. He was started on Lipitor and Aldactone. If he continues to have chest pain, stent to the LAD could be attempted. Since his discharge, he has been going to cardiac rehabilitation. I actually just saw him in the Cardiology Clinic in February. At that time, he was doing well. However, he did develop diarrhea, felt to be related to the Pletal, which was discontinued and he was switched to dipyridamole. My nurse practitioner started him on lisinopril 2.5 mg a day. When I saw him in the clinic a month ago, I recommended increase carvedilol to 6.25 mg twice a day and stop the Lasix to take only as needed for edema rather than every day. He did undergo screening and was found to have minimal carotid stenosis, but no abdominal aneurysm and normal ABIs. The patient denies any recent chest pain, increased shortness of breath, palpitation, syncope, edema. The patient actually went to cardiac rehabilitation earlier today. He then road with his on a tandem motorcycle to [place] to purchase some boot. When he got to [place], he felt lightheaded. He also noticed some pain in his back between his shoulder blades, there was some jaw discomfort. His noted he was pale and felt somewhat short of breath. He came to the [place] [address] CONSULTATION Name: KAYLEIGH ZAMBRANO Room: [address] Zeeshan Reid#: [id number] Admission: 04/15/19 Attend Phys: Kelvin Díaz MD Discharge: 04/16/19 Date of : 44 Report #: [id number] was found to be hypotensive, blood pressure of 80. He was admitted for further evaluation and treatment. He denies any bleeding problems. PAST MEDICAL HISTORY: Significant for ankle surgery, cholecystectomy, hernia repair, hydrocele repair. He has a history of hyperlipidemia with a previous LDL of 159. No history of hypertension. CURRENT MEDICATIONS: Includes Lipitor, carvedilol, Plavix, dipyridamole, Proscar, lisinopril, omeprazole and Flomax. ALLERGIES: HE HAS ALLERGY TO PENICILLIN. FAMILY HISTORY: His father had heart disease. SOCIAL HISTORY: He is . He and his live here in [place]. 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 No smoking. No alcohol abuse. REVIEW OF SYSTEMS: He has had no history of stroke, asthma, peptic ulcer disease. He does have chronic kidney disease. No cancer. No psychiatric illness. No chronic skin condition. PHYSICAL EXAMINATION: GENERAL: Revealed an elderly male, lying in bed, appeared in no acute distress. VITAL SIGNS: When he got to the emergency Room, is only 88/54, pulse of 76. He was afebrile. HEENT: He was anicteric. Conjunctivae pink. Mucous membranes are moist. NECK: Veins do not appear distended. No carotid bruits. Neck supple. CHEST: Clear to auscultation. CARDIOVASCULAR: Regular rate and rhythm. No rub or murmur. ABDOMEN: Soft. EXTREMITIES: Had no edema. Dorsalis pedis pulse 2+ bilaterally. SKIN: Warm, dry. NEUROLOGIC: Nonfocal. LABORATORY AND IMAGING DATA: ECG showed a sinus rhythm with no ST or T-wave change. His workup in the Emergency Room today, he had a CT scan of the chest using a PE protocol that showed no pulmonary embolus and no aortic dissection. His chest x-ray in the Emergency Room today showed atelectasis, otherwise unremarkable. His lab work today, sodium 139 and BUN 41, it was actually 64 last June and creatinine 1.9, it actually went to 2.7 last June, glucose 144. His liver function studies were normal. Troponin today is 0.06 with his myocardial infarction in January, fish to 25. Cholesterol in December was 227, triglyceride 196, HDL 29 and LDL 159. TSH last June was 4.1. His white blood cell count was 6.9 and hemoglobin 14. IMPRESSION AND RECOMMENDATIONS: [place] [address] CONSULTATION Name: KAYLEIGH ZAMBRANO AMRIT Room: [address] Zeeshan Reid#: [id number] Admission: 04/15/19 Attend Phys: Kelvin Díaz MD Discharge: 04/16/19 Date of : 44 Report #: [id number] 1. Episode of lightheadedness, suspect secondary to hypotension. I would recommend discontinuing lisinopril. 2. Coronary artery disease. I would continue Plavix. Since now been 3 months following placement of drug-eluting since I think it is reasonable to discontinue dipyridamole. The patient has a TRUE ASPIRIN allergy. 3. Cardiomyopathy. The patient is on Coreg. I would discontinue his PHILIPPE because of low blood pressure. 4. Hyperlipidemia. I would recommend repeat lipid profile on a statin drug. 5. Chronic kidney disease. 6. Previous episode of atrial fibrillation. If recurrent, I would consider anticoagulation. 7. Prostatism. 8. Back pain. Suspect musculoskeletal. <ELECTRONICALLY SIGNED> By: Herber Tucker MD, FACC 04/18/19 1253 1705 0025Dadiomedes Tucker MD, FACC /nt
--- NOTE | 2019-04-18 16:48 | EKG ---
[place] [address] ELECTROCARDIOGRAM REPORT Name: KAYLEIGH ZAMBRANO Room: [address] M.R.#: [id number] Admission: 04/15/19 Attend Phys: Kelvin Díaz MD Discharge: 04/16/19 Date of : 44 Report #: [id number] THIS REPORT FOR: //name// [facility] ED Test Date: 2019-04-15 Test Time: 12:10:23 Pat Name: KAYLEIGH ZAMBRANO Department: Room: [facility] Gender: M Director Of Customer Acquisition: : 1940 Requested By: Telma Montaño Order Number: [id number] MD: Ariel Beavers Measurements Intervals [place] Rate: 73 P: 43 [place]: 193 QRS: 18 QRSD: 99 T: 18 QT: 366 QTc: 404 Interpretive Statements Sinus rhythm Compared to ECG 01/19/2019 08:06:54 Myocardial infarct finding no longer present Electronically Signed On 04-18-2019 16:48:10 CDT by Ariel Beavers [email or web address] <ELECTRONICALLY SIGNED> By: Ariel Beavers MD, [facility] 04/18/19 8820 1210 1210 Ariel Beavers MD, [facility] /EPI
== END 2019-04-16 13:45 | disposition home or self-care (01) ==
LOC: M.ERS 12:06 → M.2W 14:27 → M.TBA-ER 14:27 → M.2W 15:32
PROVIDERS: Personal Emergency Response Attendant; ADMIT Internal Medicine
DX: I95.1 Orthostatic hypotension (principal); R55 Syncope and collapse; N18.3 Chronic kidney disease, stage 3 (moderate); I50.22 Chronic systolic (congestive) heart failure; I25.10 Atherosclerotic heart disease of native coronary artery without angina pectoris; J44.9 Chronic obstructive pulmonary disease, unspecified; I48.0 Paroxysmal atrial fibrillation; K21.9 Gastro-esophageal reflux disease without esophagitis; N40.0 Benign prostatic hyperplasia without lower urinary tract symptoms; E78.5 Hyperlipidemia, unspecified; R42 Dizziness and giddiness; I42.9 Cardiomyopathy, unspecified; Z79.899 Other long term (current) drug therapy

== ENCOUNTER → 2019-06-08 | Outpatient (CLI) | payer MEDICARE, OTHER ==
[~2019-06-08] MED LIST changes: +DIPYRIDAMOLE 7575 M1 PO; +LISINOPRIL2.5 MG PO; +MEGA RED KRILL OIL; +PROTONIX40 M1 PO
--- NOTE | 2019-06-08 10:31 | 2DMMODE ---
[place] [address] 2 D/M-MODE ECHOCARDIOGRAM Name: KAYLEIGH ZAMBRANO Room: [facility]#: [id number] Admission: 06/08/19 Attend Phys: Herber Tucker MD Discharge: Date of : 44 Date of Service: 06/08/19 1030 Report #: [id number] THIS REPORT FOR: //name// APPROVED REPORT Study performed: 06/08/2019 07:58:17 EXAM: Comprehensive 2D, Doppler, and color-flow Echocardiogram Patient Location: Out-Patient BSA: 2.09 HR: 64 bpm BP: 130/80 mmHg Other Information Study Quality: Good Indications Congestive Heart Failure 2D Dimensions IVSd: 11.59 (7-11mm) LVOT Diam: 20.46 (18-24mm) LVDd: 46.50 mm PWd: 10.06 (7-11mm) Ascending Ao: 30.87 (22-36mm) LVDs: 23.88 (25-40mm) Aortic Root: 28.37 mm Volumes Left Atrial Volume (Systole) LA ESV Index: 15.30 mL/m2 Aortic Valve AoV Peak Telly.: 1.09 m/s AO Peak Gr.: 4.73 mmHg LVOT Max P.55 mmHg AO Mean Gr.: 2.74 mmHg LVOT Mean P.11 mmHg LVOT Max V: 0.80 m/s AO V2 VTI: 27.34 cm LVOT Mean V: 0.47 m/s FAUSTINO (VTI): 2.41 cm2 LVOT V1 VTI: 20.01 cm Mitral Valve E/A Ratio: 0.76 MV Decel. Time: 194.76 ms MV E Max Telly.: 0.49 m/s MV PHT: 56.48 ms MVA (PHT): 3.90 [place] [address] 2 D/M-MODE ECHOCARDIOGRAM Name: KAYLEIGH ZAMBRANO Room: [facility]#: [id number] Admission: 06/08/19 Attend Phys: Herber Tucker MD Discharge: Date of : 44 Date of Service: 06/08/19 1030 Report #: [id number] TDI E/Lateral E': 7.00 E/Medial E': 7.00 Medial E' Telly.: 0.07 m/s Lateral E' Telly.: 0.07 m/s Pulmonary Valve PV Peak Telly.: 1.21 m/s PV Peak Gr.: 5.86 mmHg Tricuspid Valve RAP Estimate: 5.00 mmHg TR Peak Gr.: 19.36 mmHg RVSP: 24.36 mmHg PA Pressure: 24.36 mmHg Left Ventricle The left ventricle is normal size. There is normal LV segmental wall motion. There is normal left ventricular wall thickness. Left ventricular systolic function is normal. The left ventricular ejection fraction is within the normal range. LVEF is 60-65%. Grade I - abnormal relaxation pattern. Right Ventricle The right ventricle is normal size. The right ventricular systolic function is normal. Atria The left atrium size is normal. The right atrium size is normal. Aortic Valve The aortic valve is normal in structure. No aortic regurgitation is present. There is no aortic valvular stenosis. Mitral Valve The mitral valve is normal in structure. Mild mitral regurgitation. No evidence of mitral valve stenosis. Tricuspid Valve The tricuspid valve is normal in structure. Mild tricuspid regurgitation. Pulmonic Valve The pulmonary valve is normal in structure. There is no pulmonic valvular regurgitation[place] [address] 2 D/M-MODE ECHOCARDIOGRAM Name: KAYLEIGH ZAMBRANO Room: [facility]#: [id number] Admission: 06/08/19 Attend Phys: Herber Tucker MD Discharge: Date of : 44 Date of Service: 06/08/19 1030 Report #: [id number] The aortic root is normal in size. IVC is normal in size and collapses >50% with inspiration. Pericardium There is no pericardial effusion. <Conclusion> Left ventricular systolic function is normal. The left ventricular ejection fraction is within the normal range. <ELECTRONICALLY SIGNED> By: Herber Tucker MD, FACC 06/08/19 1030 1030 1030 Herber Tucker MD, FACC /INF
== END ==
LOC: M.CRD 07:17
DX: I08.1 Rheumatic disorders of both mitral and tricuspid valves (principal); I25.5 Ischemic cardiomyopathy

== ENCOUNTER → 2019-06-29 | Outpatient (CLI) | payer MEDICARE, OTHER ==
--- NOTE | 2019-06-29 17:04 | CARDNUC ---
[place] [address] CARDIAC NUCLEAR IMAGING REPORT Name: KAYLEIGH ZAMBRANO Room: [facility]#: [id number] Admission: 06/29/19 Attend Phys: Herber Tucker MD Discharge: Date of : 44 Date of Service: 06/29/19 1704 Report #: [id number] THIS REPORT FOR: //name// APPROVED REPORT Study performed: 06/29/2019 14:29:16 Exam: Nuclear Stress Test Indication: Cardiomyopathy Patient Location: Out-Patient Stress Tech: [facility] Stress Nurse: Trinh Amaro RN Ht: 5 ft 8 in Wt: 212 lbs BSA: 2.10 m2 BMI: 32.23 Medical History Medical History: mi, cad, hyperlipidemia, hypertension Medications: coreg, furoseminde, ntg, lipitor, plavix Allergies: penicillin, bacitracin, neomycin,polymycin, asa Cardiac Risk Factors: age, hyperlipidemia, hypertension, family hx Previous Cardiac Procedures: pci Exercise History: Physically active Meds Held (24 hrs): coreg Stress Test Details Stress Test: Exercise stress testing was performed using a protocol. HR Resting HR: 79 bpm Max Heart Rate (APMHR): 144 bpm Max HR Achieved: 156 bpm Target HR (85% APMHR): 122 bpm % of APMHR: 108 Recovery HR: 84 bpm HR response to stress: Accelerated HR response to stress BP Resting BP: 132/82 mmHg Max BP: 189/85 mmHg BP response to stress: Normal blood pressure response to stress. ECG Resting ECG: Sinus Rhythm Stress ECG: Sinus Tachycardia [address] [address] CARDIAC NUCLEAR IMAGING REPORT Name: KAYLEIGH ZAMBRANO Room: [facility]#: [id number] Admission: 06/29/19 Attend Phys: Herber Tucker MD Discharge: Date of : 44 Date of Service: 06/29/19 1704 Report #: [id number] Change: None Arrhythmia: None Recovery ECG: Sinus Rhythm Recovery ST Change: None Recovery Arrhythmia: None Clinical Reason for Termination: Fatigue, Dyspnea Exercise duration: 4 min 59 sec Exercise capacity: 7.03 METs Functional Aerobic Impairment 108% The patient had no chest discomfort with dinner protocol exercise. He was limited in exercise tolerance and only capable of walking 4 minutes and 59 seconds on the standard protocol. Exercise was discontinued due to dyspnea and fatigue patient did achieve 108% of the age-predicted maximum heart rate. Stress ECG Conclusion The baseline 12-lead EKG shows sinus rhythm without significant ST or T wave abnormality. EKGs obtained during and post exercise showed sinus rhythm and sinus tachycardia with no significant ST or T wave changes when compared to baseline. There were no stress-induced arrhythmias. NM EXAM: Myocardial Perfusion REST/STRESS Imaging Protocol: Rest Tc-99m/Stress Tc-99m 1 day Resting Data Rest SPECT myocardial perfusion imaging was performed in supine position 30 minutes following the intravenous injection of 11.4 mCi of Tc-99m Sestamibi. Time of rest injection: 13:00 The images were gated to evaluate regional wall motion and calculate left ventricular ejection fraction. Administration Route: IV Administration Site: Right Hand Exercise Stress At peak stress, the patient was injected intravenously with 35.8mCi of Tc-99m Sestamibi. Time of stress injection: 14:30 Administration Route: IV Administration Site: Right Hand Heart Rate at time of stress injection: 156 bpm. Gated Stress SPECT was performed 30 [place] [address] CARDIAC NUCLEAR IMAGING REPORT Name: KAYLEIGH ZAMBRANO Room: [facility]#: [id number] Admission: 06/29/19 Attend Phys: Herber Tucker MD Discharge: Date of : 44 Date of Service: 06/29/19 1704 Report #: [id number] The images were gated to evaluate regional wall motion and calculate left ventricular ejection fraction. Prone imaging was performed. Study Quality Study: Good Artifact: Mild Diaphragmatic artifact Study Data At rest, the left ventricular ejection fraction was 73%.. Post stress, the left ventricular ejection was 66%.. TID = 1.01. Perfusion Perfusion images obtained in the supine position at rest and post exercise stress show a small in size moderate intensity defect in the basal inferior wall that resolves completely with post stress prone imaging suggesting diaphragmatic attenuation artifact. No other significant fixed or reversible defects were identified. Wall Motion Normal left ventricular wall motion. Nuclear Conclusion ECG Findings: negative for ischemia Clinical Findings: negative for ischemia Nuclear Findings: negative for ischemia Exercise Capacity: abnormal Left Ventricular Function: normal Risk Study: low There was no evidence of infarct or stress-induced ischemia on perfusion studies. Left ventricular systolic function appears normal on gated studies. The patient did have a limited exercise tolerance. This is not a high risk study. <Conclusion> The baseline 12-lead EKG shows sinus rhythm without significant ST or T wave abnormality. EKGs obtained during and post exercise showed sinus rhythm and sinus tachycardia with no significant ST or T wave changes when compared to baseline. There were no stress-induced arrhythmias. <ELECTRONICALLY SIGNED> By: Ariel Beavers MD, FACC 06/29/19 1704 170 170 Ariel Beavers MD, FACC /INF
== END ==
LOC: M.NUC 06-17 17:17
DX: I25.5 Ischemic cardiomyopathy (principal); I25.10 Atherosclerotic heart disease of native coronary artery without angina pectoris

== ENCOUNTER 2020-08-07 13:31 | Emergency (ER) | payer MEDICARE, OTHER ==
[~2020-08-07] VITALS: Ht 172.7 cm; Wt 102.1 kg
[2020-08-07 13:59] LABS: ABSOLUTE BASOPHILS 0.1 thou/uL (0.0-0.2); ABSOLUTE EOSINOPHILS 0.2 thou/uL (0.0-0.7); ABSOLUTE LYMPHOCYTES 2.3 thou/uL (0.8-5.3); ABSOLUTE MONOCYTES 0.4 thou/uL (0.0-1.2); ABSOLUTE NEUTROPHILS 2.5 thou/uL (1.6-8.1); BASOPHILS 1.2 %; EOSINOPHILS 3.5 %; HEMATOCRIT 43.7 % (42.0-52.0); HEMOGLOBIN 14.5 gm/dL (14.0-18.0); LYMPHOCYTES 42.5 %; MCH 28.3 pg (26.0-34.0); MCHC 33.2 g/dL (28.0-37.0); MCV 85.2 fL (80.0-100.0); MONOCYTES 6.6 %; MPV 7.4 fl. (7.2-11.1); NUCLEATED RBCS 0 /100WBC; PLATELET COUNT* 217 thou/uL (150-400); POLYS 46.2 %; RBC 5.13 mil/uL (4.50-6.00); RDW-CV 13.8 % (10.5-14.5); WBC 5.5 thou/uL (4.0-11.0)
[2020-08-07 14:08] LABS: CREATININE 1.3 mg/dL (0.6-1.3); POTASSIUM 4.3 mmol/L (3.5-5.1)
[2020-08-07 14:13] LABS: ALBUMIN 3.7 g/dL (3.4-5.0); TOTAL BILIRUBIN 0.9 mg/dL (<0.1-1.0); TOTAL PROTEIN 7.4 g/dL (6.4-8.2)
[2020-08-07 16:24] VITALS: BP 101/68
--- NOTE | 2020-08-07 16:50 | EKG ---
[place] [address] ELECTROCARDIOGRAM REPORT Name: KAYLEIGH ZAMBRANO Room: [facility]#: [id number] Admission: 08/07/20 Attend Phys: Discharge: 08/07/20 Date of : 44 Date of Service: 08/07/20 1334 Report #: [id number] THIS REPORT FOR: //name// [facility] ED Test Date: 2020-08-07 Test Time: 13:34:42 Pat Name: KAYLEIGH ZAMBRANO Department: Room: Gender: [employer] Adf Consultant: : 1940 Requested By: Nicolas Simmons Order Number: [id number] MD: Herber Tucker Measurements Intervals [place] Rate: 65 P: 53 NE: 187 QRS: 21 QRSD: 110 T: 51 QT: 407 QTc: 424 Interpretive Statements Sinus rhythm Low voltage, precordial leads Compared to ECG 04/15/2019 12:10:23 Low QRS voltage now present Electronically Signed On 08-07-2020 16:50:26 RECRUITING ADMINISTRATOR by Herber Tucker [email or web address] <ELECTRONICALLY SIGNED> By: Herber Tucker MD, FAC 08/07/20 1650 1334 1334 Herber Tucker MD, [facility] /EPI
== END 2020-08-07 16:25 | disposition home or self-care (01) ==
LOC: M.ERS 13:31
PROVIDERS: Family Medicine
DX: R55 Syncope and collapse (principal); N18.30 Chronic kidney disease, stage 3 unspecified; K21.9 Gastro-esophageal reflux disease without esophagitis; I48.91 Unspecified atrial fibrillation; I25.2 Old myocardial infarction; E78.5 Hyperlipidemia, unspecified; J44.9 Chronic obstructive pulmonary disease, unspecified; Z88.6 Allergy status to analgesic agent; Z88.1 Allergy status to other antibiotic agents; Z88.0 Allergy status to penicillin; Z79.899 Other long term (current) drug therapy; Z98.42 Cataract extraction status, left eye; Z98.41 Cataract extraction status, right eye; Z90.49 Acquired absence of other specified parts of digestive tract; Z95.5 Presence of coronary angioplasty implant and graft; Z98.890 Other specified postprocedural states

== ENCOUNTER → 2020-10-09 | Outpatient (CLI) | payer MEDICARE, OTHER | LOC: M.MRI 15:26 | PROVIDERS: ATTEND Orthopaedic Surgery | DX: S83.242A Other tear of medial meniscus, current injury, left knee, initial encounter (principal); S83.282A Other tear of lateral meniscus, current injury, left knee, initial encounter; M17.12 Unilateral primary osteoarthritis, left knee; M25.462 Effusion, left knee; M71.22 Synovial cyst of popliteal space [Baker], left knee; X58.XXXA Exposure to other specified factors, initial encounter; Y93.89 Activity, other specified; Y92.89 Other specified places as the place of occurrence of the external cause; Y99.8 Other external cause status ==

== ENCOUNTER → 2020-10-16 | Outpatient (CLI) | payer MEDICARE, OTHER ==
[~2020-10-16] MED LIST changes: +COREG6.25 MG PO; +ELIQUIS5 MG PO; +FUROSEMIDE 20 M20 MG PO; +LIPITOR80 MG PO; +POTASSIUM99 M1 PO
[2020-10-16 09:26] LABS: ABSOLUTE BASOPHILS 0.1 thou/uL (0.0-0.2); ABSOLUTE EOSINOPHILS 0.2 thou/uL (0.0-0.7); ABSOLUTE LYMPHOCYTES 1.8 thou/uL (0.8-5.3); ABSOLUTE MONOCYTES 0.5 thou/uL (0.0-1.2); ABSOLUTE NEUTROPHILS 2.8 thou/uL (1.6-8.1); BASOPHILS 1.2 %; EOSINOPHILS 4.5 %; HEMATOCRIT 42.4 % (42.0-52.0); HEMOGLOBIN 14.2 gm/dL (14.0-18.0); LYMPHOCYTES 32.7 %; MCH 28.3 pg (26.0-34.0); MCHC 33.5 g/dL (28.0-37.0); MCV 84.5 fL (80.0-100.0); MONOCYTES 9.9 %; MPV 7.3 fl. (7.2-11.1); NUCLEATED RBCS 0 /100WBC; PLATELET COUNT* 213 thou/uL (150-400); POLYS 51.7 %; RBC 5.02 mil/uL (4.50-6.00); RDW-CV 13.9 % (10.5-14.5); WBC 5.5 thou/uL (4.0-11.0)
[2020-10-16 09:39] LABS: ALBUMIN 3.7 g/dL (3.4-5.0); CALCIUM 9.3 mg/dL (8.5-10.1); CREATININE 1.2 mg/dL (0.6-1.3); TOTAL BILIRUBIN 0.6 mg/dL (<0.1-1.0); TOTAL PROTEIN 7.1 g/dL (6.4-8.2)
[2020-10-16 09:53] LABS: APTT 27.3 Seconds (25.0-31.3); PROTIME 10.8 Seconds (9.20-11.50)
[2020-10-16 10:30] LABS: ESR (SEDRATE) 17 mm/hr (0-20)
[2020-10-17 02:06] LABS: GLYCOHEMOGLOBIN (HGB A1C) 5.8 % (4.8-5.6)
== END ==
LOC: M.LAB 09:08
PROVIDERS: ATTEND Orthopaedic Surgery
DX: Z01.812 Encounter for preprocedural laboratory examination (principal); Z20.822 Contact with and (suspected) exposure to COVID-19; M17.12 Unilateral primary osteoarthritis, left knee

== ENCOUNTER 2020-10-22 07:54 | Observation (INO) | payer MEDICARE, OTHER ==
[~2020-10-22] VITALS: Ht 172.7 cm; Wt 97.5 kg
--- NOTE | ~2020-10-22 | OP ---
[address] [address] OPERATIVE REPORT Name: KAYLEIGH ZAMBRANO Room: [address] Zeeshan Reid#: [id number] Admission: 10/22/20 Attend Phys: Sarai Castro Discharge: Date of : 44 Report #: [id number] THIS REPORT FOR: cc: KUSUM YEAGER MD, HEATHER L. MD ~ Benito Greco DO DICTATED BY: Eber Ruff DO DATE OF SERVICE: 10/22/2020 PREOPERATIVE DIAGNOSIS: Left knee degenerative joint disease. POSTOPERATIVE DIAGNOSIS: Left knee degenerative joint disease. PROCEDURE PERFORMED: Left total knee arthroplasty utilizing the Jensen and Nephew Journey with VisionAire technology with the following components: 1. A size 8 posterior stabilized femoral component. 2. A size 6 tibial component. 3. A size 9 mm posterior stabilized polyethylene component. 4. A size 32 patella. SURGEON: Benito Greco DO ASSISTANTS: 1. Randi Burroughs PA-C. 2. Eber Ruff DO and Malka Greco DO. ANESTHESIA: Spinal with regional nerve block. ESTIMATED BLOOD LOSS: 175 mL. ANTIBIOTICS: 2 g Ancef IV preoperatively. COMPLICATIONS: None. SPECIMENS: None. CONDITION: The patient is stable to PACU. INDICATIONS FOR PROCEDURE: The patient is a pleasant 79-year-old male who was seen and examined in outpatient orthopedic clinic with regards to his left knee pain. Radiographs were obtained, which demonstrated advanced degenerative joint disease with joint space narrowing, osteophytic lipping and subchondral sclerosis. There is varus deformity. Of note, he does have a previous segmental tibial shaft fracture back in the 1970s, which was treated [facility] [address] [place] [address] OPERATIVE REPORT Name: KAYLEIGH ZAMBRANO AMRIT Room: [address] Zeeshan Reid#: [id number] Admission: 10/22/20 Attend Phys: Sarai Castro Discharge: Date of : 44 Report #: [id number] nonoperatively. This did go on to union, but did lead somewhat of a bony deformity to his tibia. Treatment options were discussed in detail with the patient. He tried and failed conservative treatment of activity modification, anti-inflammatories and intraarticular steroid injections. Total knee arthroplasty was discussed including the risks, benefits, alternatives and complications, and he wished to proceed. We recommended proceeding with the Jensen and NephFourandhalfe technology due to the tibial deformity. DESCRIPTION OF PROCEDURE: The patient was seen and examined in the preoperative holding area. The correct operative extremity was marked. Written consent was obtained. He was transferred to the operating room and given a spinal anesthetic by the anesthesia team. He was then placed supine on the operating room table. A well-padded tourniquet was placed in left thigh, which was not inflated during the procedure. Left lower extremity was prepped and draped in the usual sterile fashion. Timeout was performed to verify the correct patient, procedure and operative extremity and all were in agreement. Next, standard midline incision was made over the left knee. Sharp dissection was carried down to the level of the joint capsule. Medial parapatellar arthrotomy was then performed. Medial periosteal sleeve was developed off the proximal tibia. The patella was everted and the patellar fat pad was excised. The distal femoral VisionAire cut block was then pinned into position and the distal femur cut was performed in the standard fashion. All excess bone was removed. Next, a cut block was placed onto the femur through the previous drill holes from the VisionAire cut block. This was pinned into position and the remainder of the femoral cuts were performed in the standard fashion. All excess bone was removed. The cut block was removed. Attention was then turned to the tibia. Again, the VisionAire cut block was then placed and pinned into appropriate position. This was confirmed with a drop david to be in appropriate alignment. Next, the tibial cut was then made through the VisionAire cut block. All excess bone was removed and the cut block was removed. The knee was taken out into extension and noted to have full extension with a size 10 spacer block and the knee was well balanced. The knee was then placed back into the flexed position and tibial trays were trialed. The size 6 tibia was noted to have most appropriate fit. The size 6 tibia was noted to have the most appropriate fit after removal of medial osteophytes. This was pinned into appropriate position and again, a drop david was used to verify positioning. Next, the trial femur was inserted. The box for the posterior stabilized post was then reamed and punched and all excess bone was removed. The sand molder was placed and size 9 posterior stabilized polyethylene trial was placed. The knee was taken through range of motion and noted to have again full range of motion and was well balanced. Attention was then turned to the patella, which was cut in a freehand fashion. This was measured to a size 32 patella. The peg holes were then drilled and the trial 32 button was placed on the patella. The knee was taken through range of motion, there was noted to be excellent patellar tracking. Next, the tibia was reamed and punched. All trial components were removed. The knee was injected [address] [place] [address] OPERATIVE REPORT Name: KAYLEIGH ZAMBRANO Room: [address]#: [id number] Admission: 10/22/20 Attend Phys: Sarai Castro Discharge: Date of : 44 Report #: [id number] with 120 mL of the orthopedic cocktail at that time. The knee was then thoroughly irrigated with pulsatile lavage. Cement was mixed on the back table. The final components were cemented into position in the standard fashion. All excess cement was removed. Once again, the size 9 trial poly was inserted and the knee was noted again a full range of motion and was well balanced. The final size 9 posterior stabilized polyethylene component was then inserted in appropriate position. The knee was thoroughly irrigated again with pulsatile lavage. One gram of vancomycin powder was inserted into the knee. The knee was then placed in 90 degrees of flexion and the capsule was closed with #1 Vicryl in interrupted nosaik-cy-mdthw fashion followed by running #1 Stratafix. This layer was again irrigated. Subcutaneous layer was closed with 2-0 Monocryl in simple interrupted and inverted fashion followed by running 3-0 Stratafix. Skin glue was then applied. Sterile dressing was applied. The patient was then awakened from anesthesia and transferred to the PACU in stable condition. By: 1422 1639Robgenaro Greco DO /nt
[~2020-10-22 07:54] MED LIST changes: -ELIQUIS5 MG PO
[2020-10-22 10:00] VITALS: BP 118/54
[2020-10-22 14:45] VITALS: BP 135/75
[2020-10-22 20:00] VITALS: BP 111/60
[2020-10-23] VITALS (8 sets, daily range): BP systolic 92–115; BP diastolic 50–70
[2020-10-23 04:18] LABS: HEMATOCRIT 32.6 % (42.0-52.0); HEMOGLOBIN 11.2 gm/dL (14.0-18.0)
[2020-10-23] MEDS ORDERED: TRAMADOL 50 MG50 MG PO (09:51)
[2020-10-23] MEDS ORDERED: OXYCODONE HCL 55 MG PO (09:51)
[2020-10-23] MEDS ORDERED: ELIQUIS5 MG PO (09:51)
== END 2020-10-23 14:12 | disposition home or self-care (01) ==
LOC: M.ORTHSURG 07:54 → M.TBA 09:15 → M.3W 09:15 → M.TBA 09:15 → M.ORTHSURG 10:20 → M.3W 14:38 → M.ORTHSURG 15:56 → M.3W 10-23 14:12
PROVIDERS: Orthopaedic Surgery; ADMIT Internal Medicine; ATTEND Internal Medicine
DX: M17.12 Unilateral primary osteoarthritis, left knee (principal); I25.10 Atherosclerotic heart disease of native coronary artery without angina pectoris; K21.9 Gastro-esophageal reflux disease without esophagitis; E66.9 Obesity, unspecified; Z68.45 Body mass index [BMI] 70 or greater, adult; I25.2 Old myocardial infarction; Z79.899 Other long term (current) drug therapy

== ENCOUNTER 2020-11-04 22:14 | Emergency (ER) | payer MEDICARE, OTHER ==
[~2020-11-04] VITALS: Ht 175.3 cm; Wt 97.5 kg
[~2020-11-04 22:14] MED LIST changes: +ELIQUIS5 MG PO
[2020-11-04 22:57] LABS: URINE BILIRUBIN NEGATIVE (Negative); URINE BLOOD 2+ (Negative); URINE CLARITY CLEAR; URINE COLOR YELLOW; URINE GLUCOSE-RANDOM NEGATIVE (Negative); URINE KETONES NEGATIVE (Negative); URINE LEUKOCYTES-REFLEX 1+ (Negative); URINE PROTEIN TRACE (Negative); URINE SPECIFIC GRAVITY 1.025 (1.005-1.030)
[2020-11-04 22:59] LABS: ABSOLUTE BASOPHILS 0.2 thou/uL (0.0-0.2); ABSOLUTE EOSINOPHILS 0.1 thou/uL (0.0-0.7); ABSOLUTE LYMPHOCYTES 1.4 thou/uL (0.8-5.3); ABSOLUTE MONOCYTES 0.7 thou/uL (0.0-1.2); ABSOLUTE NEUTROPHILS 11.4 thou/uL (1.6-8.1); BASOPHILS 1.1 %; EOSINOPHILS 1.1 %; HEMOGLOBIN 9.4 gm/dL (14.0-18.0); MCH 27.5 pg (26.0-34.0); MCHC 33.5 g/dL (28.0-37.0); MPV 7.1 fl. (7.2-11.1); NUCLEATED RBCS 0 /100WBC; PLATELET COUNT* 390 thou/uL (150-400); POLYS 82.8 %; RBC 3.42 mil/uL (4.50-6.00); RDW-CV 13.9 % (10.5-14.5); WBC 13.7 thou/uL (4.0-11.0)
[2020-11-04 23:00] LABS: CALCIUM 8.5 mg/dL (8.5-10.1); CREATININE 1.1 mg/dL (0.6-1.3); POTASSIUM 3.7 mmol/L (3.5-5.1)
[2020-11-04 23:05] LABS: URINE NITRITE-REFLEX POSITIVE (Negative)
[2020-11-04 23:24] LABS: CASTS None Seen /LPF (None Seen); SQUAMOUS 0-3 Few /LPF (0-3); URINE WBC-REFLEX >25 Many /HPF (0-5)
[2020-11-04 23:25] LABS: BACTERIA-REFLEX >30 Many /HPF (None Seen); CRYSTALS None Seen /LPF (None Seen); URINE RBC 0-2 Rare /HPF (0-2)
[2020-11-05] MEDS ORDERED: MACROBID 100 M100 M1 PO (00:13)
[2020-11-05 00:40] VITALS: BP 137/73
== END 2020-11-05 00:35 | disposition home or self-care (01) ==
LOC: M.ERS 22:14
PROVIDERS: Emergency Medicine
DX: N39.0 Urinary tract infection, site not specified (principal); K59.00 Constipation, unspecified; K21.9 Gastro-esophageal reflux disease without esophagitis; E78.5 Hyperlipidemia, unspecified; N40.0 Benign prostatic hyperplasia without lower urinary tract symptoms; Z88.0 Allergy status to penicillin; Z88.6 Allergy status to analgesic agent; Z88.1 Allergy status to other antibiotic agents; Z88.8 Allergy status to other drugs, medicaments and biological substances; Z87.01 Personal history of pneumonia (recurrent); Z90.49 Acquired absence of other specified parts of digestive tract; S80.02XA Contusion of left knee, initial encounter; X58.XXXA Exposure to other specified factors, initial encounter; Y93.89 Activity, other specified; Y92.89 Other specified places as the place of occurrence of the external cause; Y99.8 Other external cause status

== ENCOUNTER → 2020-12-12 | Outpatient (CLI) | payer MEDICARE, OTHER ==
[~2020-12-12] MED LIST changes: +MACROBID 100 M100 M1 PO
== END ==
LOC: M.LAB 09:44
PROVIDERS: ATTEND Orthopaedic Surgery
DX: Z01.812 Encounter for preprocedural laboratory examination (principal); Z20.822 Contact with and (suspected) exposure to COVID-19; Z47.1 Aftercare following joint replacement surgery; Z96.652 Presence of left artificial knee joint